=== PATIENT | female | born 1990 | race Caucasian/White ===

== ENCOUNTER 2019-12-20 23:51 | Emergency (ER) | payer SELFPAY ==
[~2019-12-20] VITALS: Ht 172 cm; Wt 79.6 kg
[~2019-12-20 23:51] MED LIST: ACHD5005 PO; CIPR500T4 PO; CLON0.5T PO; CLON1TAB69 PO; ESCI10TA55; HYDR25CA PO; IBP600T1 PO; NFR150C PO; OXYC-12 PO; PREN1TAB39 PO; PROP10TA8; SULF1TAB35 PO; ZLP10T PO
[2019-12-21 00:18] LABS: BILIRUBIN,URINE NEGATIVE (NEGATIVE); CLARITY,URINE CLOUDY; COLOR,URINE YELLOW; GLUCOSE, URINE (UA) TRACE (NEGATIVE); KETONES,URINE NEGATIVE (NEGATIVE); LEUKOCYTE ESTERASE ,URINE 1+ (NEGATIVE); NITRITE,URINE POSITIVE (NEGATIVE); PH,URINE 8.5 (5-9); PROTEIN,URINE 3+ (NEGATIVE)
[2019-12-21 00:33] LABS: BACTERIA,URINE MODERATE /HPF
[2019-12-21] MEDS ORDERED: NS IV 1000 ML 1,000 ML IV SCH (01:19)
[2019-12-21 01:26] LABS: BASOPHILS % (AUTO) 0 % (0-10); EOSINOPHILS # (AUTO) 0.3 10^3/uL (0.0-0.3); EOSINOPHILS % (AUTO) 2 % (0-10); HEMATOCRIT 37 % (35-52); HEMOGLOBIN 12.5 G/DL (11.5-16.0); LYMPHOCYTES # (AUTO) 1.5 X 10^3 (1.0-4.0); LYMPHOCYTES % (AUTO) 12 % (12-44); MEAN CORPUSCULAR HEMOGLOBIN 31 PG (25-34); MEAN CORPUSCULAR HGB CONC 34 G/DL (32-36); MEAN CORPUSCULAR VOLUME 92 FL (80-99); MONOCYTES # (AUTO) 0.9 X 10^3 (0.0-1.0); MONOCYTES % (AUTO) 7 % (0-12); NEUTROPHILS # (AUTO) 10.5 X 10^3 (1.8-7.8); NEUTROPHILS % (AUTO) 80 % (42-75); PLATELET COUNT 422 10^3/uL (130-400); RED CELL DISTRIBUTION WIDTH 13.3 % (10.0-14.5); WHITE BLOOD COUNT 13.2 10^3/uL (4.3-11.0)
--- NOTE | 2019-12-21 01:26 | ED Abdominal Pain ---
General Stated Complaint: ABD PAIN Source of Information: Patient, Other Exam Limitations: No Limitations History of Present Illness Date Seen by Provider: Dec 21, 2019 Time Seen by Provider: 01:05 Initial Comments Patient presents to ER by private conveyance with her significant other and chief complaint that about 9:00, 4 hours prior she Began to experience some right lower quadrant abdominal pain wrapping around into her right flank. She describes it as extremely painful like her hip is breaking. She has no history of kidney stones. She thinks it's her appendix is inflamed. She's not having any constipation or diarrhea. She is having some nausea with vomiting. She has not taken anything for pain or nausea at home. She is not having any fevers or chills. She has had 3 C-sections and a tubal ligation but no other intra- abdominal surgeries. Allergies and Home Medications Allergies Coded Allergies: latex (Verified Allergy, Unknown, 11/18/14) Home Medications Clonazepam 0.5 Mg Tablet, 0.5 MG PO BID Prescribed by: HUGO CUELLO on 09/05/15 2303 Hydrocodone Bit/Acetaminophen 1 Each Tablet, 1 EACH PO Q4H PRN for PAIN Prescribed by: NOBLE FOSTER on 07/12/16 1454 Patient Home Medication List Home Medication List Reviewed: Yes Review of Systems Review of Systems Constitutional: No chills, No fever EENTM: No Blurred Vision, No Double Vision Respiratory: Denies Cough, Denies Shortness of Air Cardiovascular: Denies Chest Pain, Denies Lightheadedness Gastrointestinal: See HPI, Abdominal Pain; Denies Constipated, Denies Diarrhea; Nausea, Vomiting Genitourinary: Denies Burning, Denies Discharge, Denies Drainage Musculoskeletal: No back pain, No joint pain All Other Systems Reviewed Negative Unless Noted: Yes Past Smdonmi-Lbuykg-Cmadgt Hx Patient Social History Alcohol Use: Denies Use Recreational Drug Use: No Smoking Status: Never a Smoker Recent Foreign Travel: No Contact w/Someone Who Travel: No Recent Hopitalizations: Yes (CHILDBIRTH) Immunizations Up To Date Tetanus Booster (TDap): Unknown Date of Influenza Vaccine: Dec 15, 2011 Past Medical History Section, Tubal Ligation Hypertension Reproductive Disorders: No [employer]IOR [employer] History: Tubal Ligation Anxiety Family Medical History No Pertinent Family Hx Physical Exam Vital Signs Capillary Refill : Height/Weight/BMI Height: 5'1" Weight: 126lbs. oz. [id number]; BMI Method:Stated General Appearance: WD/WN, mild distress HEENT: PERRL/EOMI, pharynx normal Neck: full range of motion, supple, normal inspection Respiratory: lungs clear, normal breath sounds, no respiratory distress, no accessory muscle use Cardiovascular: normal peripheral pulses, regular rate, rhythm, tachycardia (105) Peripheral Pulses: 2+ Radial Pulses (R), 2+ Radial Pulses (L) Gastrointestinal: normal bowel sounds, soft; No rebound; tenderness (right lower quadrant and right flank), other (negative for Rovsing sign, psoas sign) Extremities: normal range of motion, non-tender, normal capillary refill Back: no vertebral tenderness, CVA tenderness (L) Neurologic/Psychiatric: alert, normal mood/affect, oriented x 3 Skin: normal color, warm/dry Progress/Results/Core Measures Results/Orders Lab Results Laboratory Tests Test 12/21/19 00:10 12/21/19 00:19 Range/Units Urine Color YELLOW Urine Clarity CLOUDY Urine pH 8.5 5-9 Urine Specific [place] 1.015 L 1.016-1.022 Urine Protein 3+ H NEGATIVE Urine Glucose (UA) TRACE H NEGATIVE Urine Ketones NEGATIVE NEGATIVE Urine Nitrite POSITIVE H NEGATIVE Urine Bilirubin NEGATIVE NEGATIVE Urine Urobilinogen 1.0 < = 1.0 MG/DL Urine Leukocyte Esterase 1+ H NEGATIVE Urine RBC (Auto) 2+ H NEGATIVE Urine RBC 5-10 H /HPF Urine WBC 10-25 H /HPF Urine Crystals NONE /LPF Urine Bacteria MODERATE H /HPF Urine Casts NONE /LPF Urine Mucus NEGATIVE /LPF Urine Culture Indicated YES White Blood Count 13.2 H 4.3-11.0 10^3/uL Red Blood Count 4.02 L 4.35-5.85 10^6/uL Hemoglobin 12.5 11.5-16.0 G/DL Hematocrit 37 35-52 % Mean Corpuscular Volume 92 80-99 FL Mean Corpuscular Hemoglobin 31 25-34 PG Mean Corpuscular Hemoglobin Concent 34 32-36 G/DL Red Cell Distribution Width 13.3 10.0-14.5 % Platelet Count 422 H 130-400 10^3/uL Mean Platelet Volume 10.0 7.4-10.4 FL Neutrophils (%) (Auto) 80 H 42-75 % Lymphocytes (%) (Auto) 12 12-44 % Monocytes (%) (Auto) 7 0-12 % Eosinophils (%) (Auto) 2 0-10 % Basophils (%) (Auto) 0 0-10 % Neutrophils # (Auto) 10.5 H 1.8-7.8 X 10^3 Lymphocytes # (Auto) 1.5 1.0-4.0 X 10^3 Monocytes # (Auto) 0.9 0.0-1.0 X 10^3 Eosinophils # (Auto) 0.3 0.0-0.3 10^3/uL Basophils # (Auto) 0.0 0.0-0.1 10^3/uL Sodium Level 138 135-145 MMOL/L Potassium Level 3.9 3.6-5.0 MMOL/L Chloride Level 102 98-107 MMOL/L Carbon Dioxide Level 24 21-32 MMOL/L Anion Gap 12 5-14 MMOL/L Blood Urea Nitrogen 10 7-18 MG/DL Creatinine 0.86 0.60-1.30 MG/DL Estimat Glomerular Filtration Rate > 60 BUN/Creatinine Ratio 12 Glucose Level 114 H 70-105 MG/DL Calcium Level 9.8 8.5-10.1 MG/DL Corrected Calcium 9.4 8.5-10.1 MG/DL Total Bilirubin 0.2 0.1-1.0 MG/DL Aspartate Amino Transf (AST/SGOT) 19 5-34 U/L Alanine Aminotransferase (ALT/SGPT) 24 0-55 U/L Alkaline Phosphatase 72 40-136 U/L Total Protein 7.5 6.4-8.2 GM/DL Albumin 4.5 3.2-4.5 GM/DL My Orders Orders - NOAH BENTLEY Ua Culture If Indicated (12/20/19 23:53) Urine Bedside (12/20/19 23:53) Urine Culture (12/21/19 00:10) Ct Abd/Pelvis Wo(Kidney Stone) (12/21/19 01:19) Cbc With Automated Diff (12/21/19 01:19) Comprehensive Metabolic Panel (12/21/19 01:19) Ketorolac Injection (Toradol Injection) (12/21/19 01:30) Ondansetron Injection (Zofran Injectio (12/21/19 01:30) Ed Iv/Invasive Line Start (12/21/19 01:19) Ns Iv 1000 Ml (Sodium Chloride 0.9%) (12/21/19 01:19) Medications Given in ED Current Medications Medications Dose Ordered Sig/Deejay Route Start Time Stop Time Status Last Admin Dose Admin Ketorolac Tromethamine 30 mg ONCE ONCE IVP 12/21/19 01:30 12/21/19 01:31 DC 12/21/19 01:46 30 MG Ondansetron HCl 4 mg ONCE ONCE IVP 12/21/19 01:30 12/21/19 01:31 DC 12/21/19 01:46 4 MG Progress Progress Note #1: Time: 01:25 Progress Note Urine has blood and evidence of infection with positive for nitrites and white blood cells. Given her flank pain will get a CT of the abdomen and pelvis without IV contrast. She's never had a kidney stone before so will include some blood work looking for kidney dysfunction or evidence of large or inflammation to correlate. Appendicitis much less likely but possible. Toradol for pain. Zofran for nausea. A liter fluids. Progress Note #2: Time: 02:53 Progress Note Patient's heart rates in the 80s, blood pressure is acceptable and her pain is much improved after Toradol. We'll give her some Rocephin. She has received IV fluids. We will offer her outpatient management for pyelonephritis. Diagnostic Imaging Diagonstic Imaging: CT (without IV contrast, kidney stone study) Plain Films/CT/US/NM/MRI: abdomen, pelvis Comments Bilateral small nonobstructing intrarenal calculi. There is at least mild dilatation of the right upper renal collecting system with periureteral and mild perinephric stranding. No identifiable ureteral calculus. Mild bladder wall thickening with reticulation. Findings are suspicious for cystitis and right pyelonephritis and ureteritis. There is a large amount of retained stool throughout the colon most pronounced in the right and transverse colon. No evidence of appendicitis. Reviewed: Reviewed [place] Study, Reviewed by Me Departure Impression Primary Impression: Pyelonephritis Disposition: HOME, SELF-CARE Condition: Stable Departure-Patient Inst. Decision time for Depature: 02:54 Referrals: RONY SANCHEZ DO (PCP) Primary Care Physician FOSTER CALDERON APRN (Family) Primary Care Physician Patient Instructions: Kidney Infection (DC) Add. Discharge Instructions: It's important to drink a lot of fluids. Caffeine is okay. Start taking the antibiotics, cefdinir one capsule twice a day with food for 10 days. Tylenol 1000 mg every 8 hours as needed for pain. Ibuprofen 800 mg every 8 hours as needed for pain. Ondansetron one tablet under the tongue every 6 hours as needed for nausea or vomiting. Hydrocodone one tablet every 6 hours as needed for breakthrough pain. MiraLAX 1 capful in 6-8 ounces of fluids once or twice a day until your bowels are moving freely. Follow-up sooner if you begin to experience fevers especially lower 102.5, intractable nausea or pain. Scripts Cefdinir (Cefdinir) 300 Mg Capsule 300 MG PO BID for 10 Days, #20 CAP 0 Refills Prov: NOAH BENTLEY 12/21/19 Ondansetron (Ondansetron Odt) 4 Mg Tab.rapdis 4 MG PO Q6H PRN for NAUSEA/VOMITING, #8 TAB 0 Refills Prov: NOAH BENTLEY 12/21/19 Hydrocodone Bit/Acetaminophen (Hydrocodone/Acetaminophen 5/325mg Tablet) 1 Tab Tab 1 EACH PO Q4-6HR PRN for PAIN-MODERATE MDD 10 for 3 Days, #8 TAB 0 Refills Prov: NOAH BENTLEY 12/21/19 NOAH BENTLEY Dec 21, 2019 01:26
[2019-12-21] MEDS ORDERED: ONDANSETRON 4 MG/2 ML (SDV) Z0FRAN IVP ONE (01:30)
[2019-12-21] MEDS ORDERED: KETOROLAC 30 MG/ML VIAL IVP ONE (01:30)
[2019-12-21 01:39] LABS: ALANINE AMINOTRANSFERASE 24 U/L (0-55); ALBUMIN 4.5 GM/DL (3.2-4.5); ALKALINE PHOSPHATASE 72 U/L (40-136); BILIRUBIN,TOTAL 0.2 MG/DL (0.1-1.0); BUN/CREATININE RATIO 12; CALCIUM 9.8 MG/DL (8.5-10.1); CARBON DIOXIDE 24 MMOL/L (21-32); CHLORIDE 102 MMOL/L (98-107); CREATININE SERUM 0.86 MG/DL (0.60-1.30); GFR ESTIMATED > 60; GLUCOSE 114 MG/DL (70-105); POTASSIUM 3.9 MMOL/L (3.6-5.0); SODIUM 138 MMOL/L (135-145); TOTAL PROTEIN 7.5 GM/DL (6.4-8.2)
[2019-12-21] MEDS ORDERED: ACHD5005 PO (03:03)
[2019-12-21] MEDS ORDERED: CEFD300C3 PO (03:03)
[2019-12-21] MEDS ORDERED: ONDA4TAB11 PO (03:03)
[2019-12-21] MEDS ORDERED: RX-ONDANSETRON 4 MG ODT (ZOFRAN) PPK #4 PO STA (03:05)
[2019-12-21] MEDS ORDERED: cefTRIAXone FOR IV USE 1,000 MG in WATER (STERILE) FOR INJECTION 10 ML IV ONE (03:15)
[2019-12-21] MEDS ORDERED: RX-HYDROCODONE/APAP 5/325 MG #4 TAB PK PO PRN (03:15)
[2019-12-21 03:54] VITALS: BP 107/71
--- NOTE | 2019-12-21 06:36 | Diagnostic Imaging Report ---
PROCEDURE: CT urinary tract, rule out kidney stone. TECHNIQUE: Multiple contiguous axial images were obtained through the abdomen and pelvis without the use of intravenous contrast. Auto Exposure Controls were utilized during the CT exam to meet ALARA standards for radiation dose reduction. INDICATION: Right lower quadrant abdominal pain. COMPARISON: None. FINDINGS: There are several punctate nonobstructing calyceal tip renal stones in both kidneys. Moderate right ureteral pyelocaliectasis. No obstructing renal stones are identified. Left ureter is negative. The bladder is grossly unremarkable on this noncontrast exam. Lung bases are clear. The liver, gallbladder, pancreas, spleen, adrenals and appendix are negative. There is a large amount of stool throughout the colon and rectum. No free intraperitoneal air or fluid. No lymphadenopathy. No evidence of bowel obstruction. Osseous structures are intact. IMPRESSION: 1. Nonobstructing calyceal tip renal stones in both kidneys. There is also moderate right hydronephrosis with no obstructing lesion identified. This may be due to recently passed renal stone. An infectious process not excluded. 2. Large amount of stool throughout the colon and rectum compatible with constipation. Dictated by: Dictated on workstation # [id number]
== END 2019-12-21 04:25 | disposition home or self-care (01) ==
LOC: EDUNIT# 23:51 → ER 23:54
DX: N12 Tubulo-interstitial nephritis, not specified as acute or chronic (principal); Z91.040 Latex allergy status
CPT/HCPCS: 36415; 74176; 80053; 81000; 84703; 85025; 87077; 87088; 96361; 96374; 96375

== ENCOUNTER 2020-05-30 13:47 | Emergency (ER) | payer SELFPAY ==
[~2020-05-30] VITALS: Ht 162.5 cm; Wt 61.8 kg
[~2020-05-30 13:47] MED LIST changes: +CEFD300C3 PO; +ONDA4TAB11 PO
[2020-05-30] MEDS ORDERED: LORazepam INJ 2 MG/ML (ATIVAN) VIAL IVP PRN ×2 (14:00→15:30)
[2020-05-30 14:08] LABS: BASOPHILS # (AUTO) 0.1 10^3/uL (0.0-0.1); BASOPHILS % (AUTO) 1 % (0-10); EOSINOPHILS # (AUTO) 0.2 10^3/uL (0.0-0.3); EOSINOPHILS % (AUTO) 3 % (0-10); HEMATOCRIT 43 % (35-52); HEMOGLOBIN 15.2 G/DL (11.5-16.0); LYMPHOCYTES # (AUTO) 2.2 X 10^3 (1.0-4.0); LYMPHOCYTES % (AUTO) 25 % (12-44); MEAN CORPUSCULAR HEMOGLOBIN 33 PG (25-34); MEAN CORPUSCULAR HGB CONC 35 G/DL (32-36); MEAN CORPUSCULAR VOLUME 92 FL (80-99); MEAN PLATELET VOLUME 9.3 FL (7.4-10.4); MONOCYTES # (AUTO) 0.8 X 10^3 (0.0-1.0); MONOCYTES % (AUTO) 9 % (0-12); NEUTROPHILS # (AUTO) 5.3 X 10^3 (1.8-7.8); NEUTROPHILS % (AUTO) 62 % (42-75); PLATELET COUNT 358 10^3/uL (130-400); RED CELL DISTRIBUTION WIDTH 13.8 % (10.0-14.5); WHITE BLOOD COUNT 8.6 10^3/uL (4.3-11.0)
[2020-05-30 14:11] LABS: BILIRUBIN,URINE NEGATIVE (NEGATIVE); CLARITY,URINE CLEAR; COLOR,URINE YELLOW; GLUCOSE, URINE (UA) NEGATIVE (NEGATIVE); KETONES,URINE NEGATIVE (NEGATIVE); LEUKOCYTE ESTERASE ,URINE TRACE (NEGATIVE); NITRITE,URINE NEGATIVE (NEGATIVE); PROTEIN,URINE NEGATIVE (NEGATIVE)
--- NOTE | 2020-05-30 14:16 | ED General ---
General Stated Complaint: VOMITING;SHAKING;DIZZINESS Source of Information: Patient Exam Limitations: No Limitations History of Present Illness Date Seen by Provider: May 30, 2020 Time Seen by Provider: 14:13 Initial Comments And typically gets some fatigue with that. As such she bought some bzji-rxb-lreiptw caffeine energy pills. One bottle says "go to sleep", 1 bottle says "stay awake". She woke up at about midnight and took what she thought was the "go to sleep" bottle but in hindsight was likely the "stay awake" bottle. She took 3 of these tablets. Since then she's had difficulty concentrating, anxiety, states she feels like she is having a panic attack, nausea and vomiting. Timing/Duration: 1-2 Days Associated Systoms: Nausea/Vomiting Allergies and Home Medications Allergies Coded Allergies: latex (Verified Allergy, Unknown, 11/18/14) Home Medications Cefdinir 300 Mg Capsule, 300 MG PO BID Prescribed by: NOAH BENTLEY on 12/21/19302 Clonazepam 0.5 Mg Tablet, 0.5 MG PO BID Prescribed by: HUGO CUELLO on 09/05/15 2303 Hydrocodone Bit/Acetaminophen 1 Each Tablet, 1 EACH PO Q4H PRN for PAIN Prescribed by: NOBLE FOSTER on 07/12/16 1454 Hydrocodone Bit/Acetaminophen 1 Tab Tab, 1 EACH PO Q4-6HR PRN for PAIN-MODERATE Prescribed by: NOAH BENTLEY on 12/21/19302 Ondansetron 4 Mg Tab.rapdis, 4 MG PO Q6H PRN for NAUSEA/VOMITING Prescribed by: NOAH BENTLEY on 12/21/19302 Patient Home Medication List Home Medication List Reviewed: Yes Review of Systems Review of Systems Constitutional: see HPI EENTM: see HPI Respiratory: no symptoms reported Cardiovascular: no symptoms reported Genitourinary: no symptoms reported Musculoskeletal: no symptoms reported Skin: no symptoms reported Psychiatric/Neurological: No Symptoms Reported Hematologic/Lymphatic: No Symptoms Reported Past Odldcdh-Ajjqfn-Sbygej Hx Patient Social History Drug of Choice: MARIJUANNA Type Used: Cigarettes Recent Hopitalizations: Yes (CHILDBIRTH) Immunizations Up To Date Tetanus Booster (TDap): Unknown Date of Influenza Vaccine: Dec 15, 2011 Past Medical History Surgeries: Yes ( X3/BARTHOLIN CYST REMOVED) Section, Tubal Ligation Respiratory: No Cardiac: Yes Hypertension Neurological: No 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 oz. 57.474633ho; 26.00 BMI Method:Stated General Appearance: No Apparent Distress, WD/WN, Anxious Eyes: Bilateral Eye Normal Inspection, Bilateral Eye PERRL, Bilateral Eye EOMI Respiratory: No Accessory Muscle Use, No Respiratory Distress Cardiovascular: Normal Peripheral Pulses, Tachycardia (118) Gastrointestinal: Normal Bowel Sounds, Non Tender, Soft Extremity: Normal Capillary Refill, Normal Inspection Neurologic/Psychiatric: Alert, Oriented x3 Skin: Normal Color, Warm/Dry Progress/Results/Core Measures Suspected Sepsis SIRS Temperature: Pulse: Respiratory Rate: Laboratory Tests 05/30/20 14:00: White Blood Count 8.6 Blood Pressure / Mean: Laboratory Tests 05/30/20 14:00: Creatinine 1.09, Platelet Count 358, Total Bilirubin 0.3 Results/Orders Lab Results Laboratory Tests Test 05/30/20 14:00 Range/Units White Blood Count 8.6 4.3-11.0 10^3/uL Red Blood Count 4.68 4.35-5.85 10^6/uL Hemoglobin 15.2 11.5-16.0 G/DL Hematocrit 43 35-52 % Mean Corpuscular Volume 92 80-99 FL Mean Corpuscular Hemoglobin 33 25-34 PG Mean Corpuscular Hemoglobin Concent 35 32-36 G/DL Red Cell Distribution Width 13.8 10.0-14.5 % Platelet Count 358 130-400 10^3/uL Mean Platelet Volume 9.3 7.4-10.4 FL Neutrophils (%) (Auto) 62 42-75 % Lymphocytes (%) (Auto) 25 12-44 % Monocytes (%) (Auto) 9 0-12 % Eosinophils (%) (Auto) 3 0-10 % Basophils (%) (Auto) 1 0-10 % Neutrophils # (Auto) 5.3 1.8-7.8 X 10^3 Lymphocytes # (Auto) 2.2 1.0-4.0 X 10^3 Monocytes # (Auto) 0.8 0.0-1.0 X 10^3 Eosinophils # (Auto) 0.2 0.0-0.3 10^3/uL Basophils # (Auto) 0.1 0.0-0.1 10^3/uL Urine Color YELLOW Urine Clarity CLEAR Urine pH 7.0 5-9 Urine Specific [place] <=1.005 1.016-1.022 Urine Protein NEGATIVE NEGATIVE Urine Glucose (UA) NEGATIVE NEGATIVE Urine Ketones NEGATIVE NEGATIVE Urine Nitrite NEGATIVE NEGATIVE Urine Bilirubin NEGATIVE NEGATIVE Urine Urobilinogen 0.2 < = 1.0 MG/DL Urine Leukocyte Esterase TRACE H NEGATIVE Urine RBC (Auto) TRACE-L NEGATIVE Urine RBC 0-2 /HPF Urine WBC 2-5 /HPF Urine Squamous Epithelial Cells 10-25 H /HPF Urine Crystals NONE /LPF Urine Bacteria TRACE /HPF Urine Casts NONE /LPF Urine Mucus NEGATIVE /LPF Urine Culture Indicated NO Sodium Level 136 135-145 MMOL/L Potassium Level 4.1 3.6-5.0 MMOL/L Chloride Level 102 98-107 MMOL/L Carbon Dioxide Level 22 21-32 MMOL/L Anion Gap 12 5-14 MMOL/L Blood Urea Nitrogen 9 7-18 MG/DL Creatinine 1.09 0.60-1.30 MG/DL Estimat Glomerular Filtration Rate 58 BUN/Creatinine Ratio 8 Glucose Level 91 70-105 MG/DL Calcium Level 10.6 H 8.5-10.1 MG/DL Corrected Calcium 8.5-10.1 MG/DL Total Bilirubin 0.3 0.1-1.0 MG/DL Aspartate Amino Transf (AST/SGOT) 22 5-34 U/L Alanine Aminotransferase (ALT/SGPT) 18 0-55 U/L Alkaline Phosphatase 96 40-136 U/L Total Protein 8.6 H 6.4-8.2 GM/DL Albumin 5.2 H 3.2-4.5 GM/DL Serum Test, Qualitative NEGATIVE NEGATIVE My Orders Orders - LISA HENRY APRN Cbc With Automated Diff (05/30/20 13:58) Comprehensive Metabolic Panel (05/30/20 13:58) Hcg,Qualitative Serum (05/30/20 13:58) Ua Culture If Indicated (05/30/20 13:58) Ed Iv/Invasive Line Start (05/30/20 13:58) Lorazepam Injection (Ativan Injection) (05/30/20 14:00) Lorazepam Injection (Ativan Injection) (05/30/20 15:30) Medications Given in ED Current Medications Medications Dose Ordered Sig/Deejay Route Start Time Stop Time Status Last Admin Dose Admin Lorazepam 1 mg ONCE PRN IVP 05/30/20 14:00 05/30/20 14:08 1 MG Vital Signs/I&O 05/30/20 13:55 Temp 36.3 Pulse 122 Resp 22 B/P (MAP) 163/112 (129) Pulse Ox 100 O2 Delivery Room Air Capillary Refill : Departure Communication (Admissions) 1527-still anxious after 1 mg of lorazepam. Heart rate 105 sinus. Blood pressure 120/80. Oxygen 100% room air. Additional 1 mg ordered. She states she doesn't feel any better. Impression Primary Impression: Anxiety Additional Impression: Caffeine toxicity Disposition: 01 HOME, SELF-CARE Condition: Stable Departure-Patient Inst. Decision time for Depature: 14:31 Referrals: RONY SANCHEZ DO (PCP) Primary Care Physician FOSTER CALDERON APRN (Family) Primary Care Physician Patient Instructions: Anxiety, Adult (DC) LISA HENRY APRN May 30, 2020 14:15
[2020-05-30 14:19] LABS: ALBUMIN 5.2 GM/DL (3.2-4.5)
[2020-05-30 14:20] LABS: BACTERIA,URINE TRACE /HPF; CHLORIDE 102 MMOL/L (98-107); POTASSIUM 4.1 MMOL/L (3.6-5.0); RBC,URINE 0-2 /HPF; SODIUM 136 MMOL/L (135-145)
[2020-05-30 14:21] LABS: CALCIUM 10.6 MG/DL (8.5-10.1)
[2020-05-30 14:22] LABS: GLUCOSE 91 MG/DL (70-105); TOTAL PROTEIN 8.6 GM/DL (6.4-8.2)
[2020-05-30 14:23] LABS: CARBON DIOXIDE 22 MMOL/L (21-32)
[2020-05-30 14:24] LABS: BILIRUBIN,TOTAL 0.3 MG/DL (0.1-1.0)
[2020-05-30 14:25] LABS: ALKALINE PHOSPHATASE 96 U/L (40-136)
[2020-05-30 14:26] LABS: CREATININE SERUM 1.09 MG/DL (0.60-1.30); GFR ESTIMATED 58
[2020-05-30 14:27] LABS: BUN/CREATININE RATIO 8
[2020-05-30 14:29] LABS: ALANINE AMINOTRANSFERASE 18 U/L (0-55)
[2020-05-30 15:52] LABS: AMPHETAMINE SCREEN, URINE NEGATIVE (NEGATIVE); BARBITURATE SCREEN URINE NEGATIVE (NEGATIVE); BENZODIAZEPINES SCREEN URINE NEGATIVE (NEGATIVE); CANNABINOID SCREEN, URINE POSITIVE (NEGATIVE); COCAINE SCREEN URINE NEGATIVE (NEGATIVE); METHADONE STAT NEGATIVE (NEGATIVE); METHAMPHETAMINE SCREEN URINE S NEGATIVE (NEGATIVE); OPIATE SCREEN URINE NEGATIVE (NEGATIVE); OXYCODONE STAT NEGATIVE (NEGATIVE); PROPOXYPHENE STAT NEGATIVE (NEGATIVE); TRICYCLIC ANTIDEPRESSANTS SCRE NEGATIVE (NEGATIVE)
[2020-05-30 16:25] VITALS: BP 116/76
[2020-05-31] MEDS ORDERED: OLAN5TAB3 PO (14:13)
== END 2020-05-30 16:25 | disposition home or self-care (01) ==
LOC: EDUNIT# 13:47 → ER 13:50
DX: F41.9 Anxiety disorder, unspecified (principal); T43.611A Poisoning by caffeine, accidental (unintentional), initial encounter; Z91.040 Latex allergy status
CPT/HCPCS: 36415; 80053; 80306; 81000; 84703; 85025

== ENCOUNTER 2020-05-31 12:38 | Emergency (ER) | payer SELFPAY ==
[~2020-05-31] VITALS: Ht 160 cm; Wt 62.3 kg
[2020-05-31] MEDS ORDERED: LORazepam INJ 2 MG/ML (ATIVAN) VIAL IVP ONE (13:00)
--- NOTE | 2020-05-31 13:09 | ED Psychosocial ---
General Chief Complaint: Psych/Social Disorder Stated Complaint: DIZZY / VOMITING / CHEST TIGHTNESS Source: patient Exam Limitations: no limitations History of Present Illness Date Seen by Provider: May 31, 2020 Time Seen by Provider: 12:40 Initial Comments Patient presents ER by private conveyance from home with chief complaint that 2 days ago she took 3 tablets of caffeine pills she says she gets sleepy before her period starts. Since then she's had racing heart, chest tightness and shortness of air. She's had no fevers cough or sick contacts. She has a history of anxiety with panic attacks. She used to use clonazepam and propranolol for her blood pressure and racing heart rate but was taken off of it and put on lisinopril because of propranolol was not sufficient. She follows with [facility]. She denies a history of personal disorders. She is having chest tightness all around. She says she came to the ER yesterday and was given 2 mg of Ativan and then went home. She was able to sleep until about 2 in the morning when she woke up again with palpitations and heart racing and unable to get rest. No significant family medical history or personal history of hypertension, hyperlipidemia. She does smoke cigarettes. She denies any recreational drug use with the exception of marijuana which she smokes regularly daily. She did have some this morning hoping it would help with her heart palpitations and anxiety but it did not. She tried whiskey last night without success. Patient states that her eyes are dilated. She is on Prozac, Zoloft and lisinopril. Allergies and Home Medications Allergies Coded Allergies: latex (Verified Allergy, Unknown, 11/18/14) Home Medications Cefdinir 300 Mg Capsule, 300 MG PO BID Prescribed by: NOAH BENTLEY on 12/21/19 030 Clonazepam 0.5 Mg Tablet, 0.5 MG PO BID Prescribed by: HUGO CUELLO on 09/05/15 2303 Hydrocodone Bit/Acetaminophen 1 Each Tablet, 1 EACH PO Q4H PRN for PAIN Prescribed by: NOBLE FOSTER on 07/12/16 1454 Hydrocodone Bit/Acetaminophen 1 Tab Tab, 1 EACH PO Q4-6HR PRN for PAIN-MODERATE Prescribed by: NOAH BENTLEY on 12/21/19 030 Olanzapine 5 Mg Tablet, 5 MG PO HS PRN for INSOMNIA Prescribed by: NOAH BENTLEY on 05/31/20 1413 Ondansetron 4 Mg Tab.rapdis, 4 MG PO Q6H PRN for NAUSEA/VOMITING Prescribed by: NOAH BENTLEY on 12/21/19 0303 Patient Home Medication List Home Medication List Reviewed: Yes Review of Systems Constitutional: No chills, No diaphoresis EENTM: No ear discharge, No ear pain Respiratory: No cough, No short of breath Cardiovascular: see HPI (fast heart rate); No chest pain, No edema; palpitations Gastrointestinal: No abdominal pain, No nausea, No vomiting Genitourinary: No discharge, No dysuria Musculoskeletal: No back pain, No joint pain Psychiatric/Neurological: Anxiety, Depressed All Other Systems Reviewed Negative Unless Noted: Yes Past Eubgrlj-Wkheuv-Ssskfo Hx Patient Social History Alcohol Use: Occasionally Uses Alcohol Beverage of Choice: Whiskey Recreational Drug Use: Yes Drug of Choice: MARIJUANNA Smoking Status: Current Everyday Smoker Type Used: Cigarettes 2nd Hand Smoke Exposure: Yes Recent Foreign Travel: No Contact w/Someone Who Travel: No Recent Hopitalizations: Yes (CHILDBIRTH) Immunizations Up To Date Tetanus Booster (TDap): Unknown Date of Influenza Vaccine: Dec 15, 2011 Seasonal Allergies Seasonal Allergies: No Past Medical History Surgeries: Yes ( X3/BARTHOLIN CYST REMOVED) Section, Tubal Ligation Respiratory: No Cardiac: Yes Hypertension Neurological: No Reproductive Disorders: No 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 oz. 57.593465co; 23.00 BMI Method:Stated General Appearance: WD/WN, moderate distress HEENT: PERRL/EOMI (. 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, no motor/sensory deficits, alert, oriented x 3, other (anxious affect without tremors) Appearance/Memory: appropriate appearance, appropriate insight, neat Behavior/Eye Contact: good eye contact, normal speech Progress/Results/Core Measures Results/Orders Lab Results Laboratory Tests Test 05/31/20 12:55 05/31/20 13:15 Range/Units White Blood Count 7.4 4.3-11.0 10^3/uL Red Blood Count 4.68 4.35-5.85 10^6/uL Hemoglobin 15.0 11.5-16.0 G/DL Hematocrit 43 35-52 % Mean Corpuscular Volume 92 80-99 FL Mean Corpuscular Hemoglobin 32 25-34 PG Mean Corpuscular Hemoglobin Concent 35 32-36 G/DL Red Cell Distribution Width 14.0 10.0-14.5 % Platelet Count 377 130-400 10^3/uL Mean Platelet Volume 9.6 7.4-10.4 FL Neutrophils (%) (Auto) 54 42-75 % Lymphocytes (%) (Auto) 30 12-44 % Monocytes (%) (Auto) 14 H 0-12 % Eosinophils (%) (Auto) 2 0-10 % Basophils (%) (Auto) 1 0-10 % Neutrophils # (Auto) 4.0 1.8-7.8 X 10^3 Lymphocytes # (Auto) 2.2 1.0-4.0 X 10^3 Monocytes # (Auto) 1.0 0.0-1.0 X 10^3 Eosinophils # (Auto) 0.2 0.0-0.3 10^3/uL Basophils # (Auto) 0.0 0.0-0.1 10^3/uL D-Dimer <= 0.27 0.00-0.49 UG/ML Sodium Level 137 135-145 MMOL/L Potassium Level 4.3 3.6-5.0 MMOL/L Chloride Level 102 98-107 MMOL/L Carbon Dioxide Level 20 L 21-32 MMOL/L Anion Gap 15 H 5-14 MMOL/L Blood Urea Nitrogen 12 7-18 MG/DL Creatinine 1.09 0.60-1.30 MG/DL Estimat Glomerular Filtration Rate 58 BUN/Creatinine Ratio 11 Glucose Level 95 70-105 MG/DL Calcium Level 10.0 8.5-10.1 MG/DL Corrected Calcium 8.5-10.1 MG/DL Total Bilirubin 0.3 0.1-1.0 MG/DL Aspartate Amino Transf (AST/SGOT) 19 5-34 U/L Alanine Aminotransferase (ALT/SGPT) 16 0-55 U/L Alkaline Phosphatase 92 40-136 U/L Troponin I < 0.028 <0.028 NG/ML C-Reactive Protein High Sensitivity 0.69 H 0.00-0.50 MG/DL Total Protein 8.9 H 6.4-8.2 GM/DL Albumin 5.2 H 3.2-4.5 GM/DL Urine Color YELLOW Urine Clarity CLEAR Urine pH 7.0 5-9 Urine Specific [place] 1.020 1.016-1.022 Urine Protein TRACE H NEGATIVE Urine Glucose (UA) NEGATIVE NEGATIVE Urine Ketones NEGATIVE NEGATIVE Urine Nitrite NEGATIVE NEGATIVE Urine Bilirubin NEGATIVE NEGATIVE Urine Urobilinogen 0.2 < = 1.0 MG/DL Urine Leukocyte Esterase NEGATIVE NEGATIVE Urine RBC (Auto) TRACE-I NEGATIVE Urine RBC RARE /HPF Urine WBC 2-5 /HPF Urine Squamous Epithelial Cells 10-25 H /HPF Urine Crystals NONE /LPF Urine Bacteria TRACE /HPF Urine Casts NONE /LPF Urine Mucus NEGATIVE /LPF Urine Culture Indicated NO Urine Opiates Screen NEGATIVE NEGATIVE Urine Oxycodone Screen NEGATIVE NEGATIVE Urine Methadone Screen NEGATIVE NEGATIVE Urine Propoxyphene Screen NEGATIVE NEGATIVE Urine Barbiturates Screen NEGATIVE NEGATIVE Ur Tricyclic Antidepressants Screen NEGATIVE NEGATIVE Urine Phencyclidine Screen NEGATIVE NEGATIVE Urine Amphetamines Screen NEGATIVE NEGATIVE Urine Methamphetamines Screen NEGATIVE NEGATIVE Urine Benzodiazepines Screen POSITIVE H NEGATIVE Urine Cocaine Screen NEGATIVE NEGATIVE Urine Cannabinoids Screen POSITIVE H NEGATIVE My Orders Orders - NOAH BENTLEY Lorazepam Injection (Ativan Injection) (05/31/20 13:00) Chest 1 View, Ap/Pa Only (05/31/20 12:57) Cbc With Automated Diff (05/31/20 12:57) Comprehensive Metabolic Panel (05/31/20 12:57) Fibrin Degradation Products (05/31/20 12:57) Ua Culture If Indicated (05/31/20 12:57) Drug Screen Stat (Urine) (05/31/20 12:57) Urine Bedside (05/31/20 12:57) Ekg Tracing (05/31/20 12:57) Continuous Ekg Monitoring (05/31/20 12:57) Troponin I (05/31/20 12:57) Hs C Reactive Protein (05/31/20 12:57) Ondansetron Injection (Zofran Injectio (05/31/20 13:30) Ondansetron Injection (Zofran Injectio (05/31/20 13:16) Olanzapine Orally Dissolve Tab (Zyprexa (05/31/20 14:15) Medications Given in ED Current Medications Medications Dose Ordered Sig/Deejay Route Start Time Stop Time Status Last Admin Dose Admin Lorazepam 2 mg ONCE ONCE IVP 05/31/20 13:00 05/31/20 13:01 DC 05/31/20 13:14 2 MG Olanzapine 5 mg ONCE ONCE PO 05/31/20 14:15 05/31/20 14:16 DC 05/31/20 14:17 5 MG Ondansetron HCl 4 mg ONCE ONCE IVP 05/31/20 13:30 05/31/20 13:31 DC 05/31/20 13:20 4 MG Vital Signs/I&O 05/31/20 12:50 Temp 36.9 Pulse 120 Resp 20 B/P (MAP) 149/106 (120) Progress Progress Note #1: Time: 13:10 Progress Note Most of her symptoms could be attributed to anxiety and panic attack however going on for the past couple days. She does not appear to be manic but very anxious. Plan to give her some Ativan IV fluids and check some labs and urinalysis as well as a chest x-ray and EKG. D-dimer. Heart rate of 1 teens however after the examiner leaves the room her heart rate dips down into the 90s. Progress Note #2: Time: 14:02 Progress Note Unremarkable labs. Benzos are from her ER visit yesterday. Cannabinoids are known. She could have adulterated cannabis with a drug that we cannot test for. She is no longer tachycardic. Vital signs are aseptic, normal. D-dimer does not objective also pulmonary embolism is thought to be highly unlikely. Suspect this is anxiety and recurrent any give her a dose of Zyprexa with one daily when necessary for 1 week and encourage her to follow up next week with primary care. Patient denies being suicidal or homicidal. She is having difficulty sleeping however. Initial ECG Impression Date: May 31, 2020 Initial ECG Impression Time: 12:58 Initial ECG Rate: 93 Initial ECG Rhythm: Normal Sinus Initial ECG Intervals: Normal Initial ECG Impression: Normal Initial ECG Comparisson: Unchanged Comment Normal sinus rhythm without clinically relevant ST elevation or depression. No significant dysrhythmia. Diagnostic Imaging Diagonstic Imaging: Xray Plain Films/CT/US/NM/MRI: chest (1v) Comments NAME: SHA [facility] REC#: [id number] PT STATUS: REG ER : 1990 PHYSICIAN: NOAH BENTLEY MD ADMIT DATE: 05/31/20/ER Signed Date of Exam:05/31/20 CHEST 1 VIEW, AP/PA ONLY CHEST 1 VIEW, AP/PA ONLY Indication: Tachycardia Comparison: None available. Findings: No focal airspace disease in the visualized lungs. Please note that the posterior lower lobes are poorly evaluated by portable radiography. No pleural effusion or pneumothorax. Normal cardiomediastinal silhouette. Impression: 1. No acute cardiopulmonary process by portable radiography. Dictated by: Dictated on workstation # [id number] Dict: 05/31/20 1339 Trans: 05/31/20 1339 [facility] [id number] Interpreted by: HYACINTH AMIN MD Electronically signed by: HYACINTH AMIN MD 05/31/20 1339 Reviewed: Reviewed by Me Departure Impression Primary Impression: Anxiety Additional Impressions: Insomnia Qualified Codes: G47.00 - Insomnia, unspecified Panic attack Disposition: HOME, SELF-CARE Condition: Stable Departure-Patient Inst. Decision time for Depature: 14:06 Referrals: RONY SANCHEZ DO (PCP) Primary Care Physician FOSTER CALDERON APRN (Family) Primary Care Physician Patient Instructions: Insomnia, Panic Disorder (DC), Tips for Getting Better Sleep Add. Discharge Instructions: I'm not sure if there was something in the caffeine or the cannabis that we cannot test for that is causing your symptoms or this is all related to your existing anxiety with panic disorder. We've been able to rule out anything dangerous happening today in the ER. Further studies may need to be done by your primary care doctor. We have given you a dose of Zyprexa which should help calm your mind and aid your ability to sleep. I will give you a prescription for some more Zyprexa. If you continue to have difficulty sleeping and may take one tablet daily. Tuesday you need to follow-up with your primary office if you're still having difficulty sleeping over the weekend. They can help further work up your problems and apply more definitive, appropriate treatment. Please review the handout on tips to help get to sleep. Please stop using cannabis or any other substances, especially alcohol which is known to cause rebound insomnia. Please return to the ER if you're having new or worsening symptoms. If you have lightheadedness especially after standing up then discontinue the Zyprexa and see your primary care doctor. All discharge instructions reviewed with patient and/or family. Voiced understanding. Scripts Olanzapine (Zyprexa) 5 Mg Tablet 5 MG PO HS PRN for INSOMNIA for 7 Days, #7 TAB 0 Refills Prov: NOAH BENTLEY 05/31/20 NOAH BENTLEY May 31, 2020 13:09
[2020-05-31] MEDS ORDERED: ONDANSETRON 4 MG/2 ML (SDV) Z0FRAN ONE (13:16)
[2020-05-31 13:24] LABS: BILIRUBIN,URINE NEGATIVE (NEGATIVE); CLARITY,URINE CLEAR; COLOR,URINE YELLOW; GLUCOSE, URINE (UA) NEGATIVE (NEGATIVE); KETONES,URINE NEGATIVE (NEGATIVE); LEUKOCYTE ESTERASE ,URINE NEGATIVE (NEGATIVE); NITRITE,URINE NEGATIVE (NEGATIVE); PROTEIN,URINE TRACE (NEGATIVE)
[2020-05-31 13:27] LABS: BASOPHILS % (AUTO) 1 % (0-10); EOSINOPHILS # (AUTO) 0.2 10^3/uL (0.0-0.3); EOSINOPHILS % (AUTO) 2 % (0-10); HEMATOCRIT 43 % (35-52); LYMPHOCYTES # (AUTO) 2.2 X 10^3 (1.0-4.0); LYMPHOCYTES % (AUTO) 30 % (12-44); MEAN CORPUSCULAR HEMOGLOBIN 32 PG (25-34); MEAN CORPUSCULAR HGB CONC 35 G/DL (32-36); MEAN CORPUSCULAR VOLUME 92 FL (80-99); MEAN PLATELET VOLUME 9.6 FL (7.4-10.4); MONOCYTES % (AUTO) 14 % (0-12); NEUTROPHILS % (AUTO) 54 % (42-75); PLATELET COUNT 377 10^3/uL (130-400); WHITE BLOOD COUNT 7.4 10^3/uL (4.3-11.0)
[2020-05-31 13:29] LABS: ALBUMIN 5.2 GM/DL (3.2-4.5); CHLORIDE 102 MMOL/L (98-107); POTASSIUM 4.3 MMOL/L (3.6-5.0); SODIUM 137 MMOL/L (135-145)
[2020-05-31] MEDS ORDERED: ONDANSETRON 4 MG/2 ML (SDV) Z0FRAN IVP ONE (13:30)
[2020-05-31 13:32] LABS: GLUCOSE 95 MG/DL (70-105); TOTAL PROTEIN 8.9 GM/DL (6.4-8.2)
[2020-05-31 13:33] LABS: BACTERIA,URINE TRACE /HPF; RBC,URINE RARE /HPF
[2020-05-31 13:33] LABS: BILIRUBIN,TOTAL 0.3 MG/DL (0.1-1.0); CARBON DIOXIDE 20 MMOL/L (21-32)
[2020-05-31 13:35] LABS: ALKALINE PHOSPHATASE 92 U/L (40-136); CREATININE SERUM 1.09 MG/DL (0.60-1.30); GFR ESTIMATED 58
[2020-05-31 13:36] LABS: BUN/CREATININE RATIO 11
[2020-05-31 13:38] LABS: ALANINE AMINOTRANSFERASE 16 U/L (0-55)
--- NOTE | 2020-05-31 13:40 | Diagnostic Imaging Report ---
CHEST 1 VIEW, AP/PA ONLY Indication: Tachycardia Comparison: None available. Findings: No focal airspace disease in the visualized lungs. Please note that the posterior lower lobes are poorly evaluated by portable radiography. No pleural effusion or pneumothorax. Normal cardiomediastinal silhouette. Impression: 1. No acute cardiopulmonary process by portable radiography. Dictated by: Dictated on workstation # [id number]
[2020-05-31 13:42] LABS: AMPHETAMINE SCREEN, URINE NEGATIVE (NEGATIVE); BARBITURATE SCREEN URINE NEGATIVE (NEGATIVE); BENZODIAZEPINES SCREEN URINE POSITIVE (NEGATIVE); CANNABINOID SCREEN, URINE POSITIVE (NEGATIVE); COCAINE SCREEN URINE NEGATIVE (NEGATIVE); METHADONE STAT NEGATIVE (NEGATIVE); METHAMPHETAMINE SCREEN URINE S NEGATIVE (NEGATIVE); OPIATE SCREEN URINE NEGATIVE (NEGATIVE); OXYCODONE STAT NEGATIVE (NEGATIVE); PROPOXYPHENE STAT NEGATIVE (NEGATIVE); TRICYCLIC ANTIDEPRESSANTS SCRE NEGATIVE (NEGATIVE)
[2020-05-31] MEDS ORDERED: OLAN5TAB3 PO (14:13)
[2020-05-31] MEDS ORDERED: OLANZapine 5 MG ODT (ZyPREXA ZYDIS) PO ONE (14:15)
[2020-05-31 14:47] VITALS: BP 126/84
== END 2020-05-31 14:49 | disposition home or self-care (01) ==
LOC: EDUNIT# 12:38 → ER 12:39
DX: F41.0 Panic disorder [episodic paroxysmal anxiety] (principal); G47.00 Insomnia, unspecified; I10 Essential (primary) hypertension; F17.210 Nicotine dependence, cigarettes, uncomplicated; Z91.040 Latex allergy status
CPT/HCPCS: 36415; 71045; 80053; 80306; 81000; 84484; 84703; 85025; 85379; 86141; 93005

== ENCOUNTER 2020-08-04 12:47 | Emergency (ER) | payer SELFPAY ==
[~2020-08-04] VITALS: Ht 162.5 cm; Wt 68.0 kg
[~2020-08-04 12:47] MED LIST changes: +OLAN5TAB3 PO
[2020-08-04 13:14] LABS: BASOPHILS # (AUTO) 0.1 10^3/uL (0.0-0.1); BASOPHILS % (AUTO) 1 % (0-10); EOSINOPHILS # (AUTO) 0.3 10^3/uL (0.0-0.3); EOSINOPHILS % (AUTO) 4 % (0-10); HEMATOCRIT 39 % (35-52); HEMOGLOBIN 13.5 G/DL (11.5-16.0); LYMPHOCYTES # (AUTO) 2.5 X 10^3 (1.0-4.0); LYMPHOCYTES % (AUTO) 31 % (12-44); MEAN CORPUSCULAR HEMOGLOBIN 32 PG (25-34); MEAN CORPUSCULAR HGB CONC 34 G/DL (32-36); MEAN CORPUSCULAR VOLUME 93 FL (80-99); MONOCYTES # (AUTO) 0.6 X 10^3 (0.0-1.0); MONOCYTES % (AUTO) 8 % (0-12); NEUTROPHILS # (AUTO) 4.7 X 10^3 (1.8-7.8); NEUTROPHILS % (AUTO) 58 % (42-75); PLATELET COUNT 414 10^3/uL (130-400); WHITE BLOOD COUNT 8.1 10^3/uL (4.3-11.0)
[2020-08-04] MEDS ORDERED: LORazepam INJ 2 MG/ML (ATIVAN) VIAL IVP PRN (13:15)
[2020-08-04 13:17] LABS: ALBUMIN 5.1 GM/DL (3.2-4.5); CHLORIDE 103 MMOL/L (98-107); POTASSIUM 4.1 MMOL/L (3.6-5.0); SODIUM 137 MMOL/L (135-145)
[2020-08-04 13:19] LABS: GLUCOSE 102 MG/DL (70-105); TOTAL PROTEIN 8.5 GM/DL (6.4-8.2)
--- NOTE | 2020-08-04 13:19 | ED Chest Pain ---
General Chief Complaint: Chest Pain Stated Complaint: CHEST PAIN Nursing Triage Note: Pt c/o chest pain described as pressure on the chest. Pt reports arms/legs have been turning purple. Pt reports extreme stress and insomnia. Pt is going through a divorce. Pt also reports history of anxiety and panic disorder. Pt reports this is worse than episodes in the past. Symptoms have persisted for several days. Nursing Sepsis Screen: No Definite Risk Source: patient Exam Limitations: no limitations History of Present Illness Date Seen by Provider: Aug 04, 2020 Time Seen by Provider: 13:17 Initial Comments To ER with reports of pressure in the chest. Arms and legs have been turning purple intermittently. She reports that she is under a lot of stress as she is going through a divorce and has a history of anxiety and panic disorder. She reports restless legs and insomnia for about 2 days. 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 NTG SL BOOM CAT OPERATOR: No Allergies and Home Medications Allergies Coded Allergies: latex (Verified Allergy, Unknown, 11/18/14) Home Medications Cefdinir 300 Mg Capsule, 300 MG PO BID Prescribed by: NOAH BENTLEY on 12/21/19 030 Clonazepam 0.5 Mg Tablet, 0.5 MG PO BID Prescribed by: HUGO CUELLO on 09/05/15 2303 Hydrocodone Bit/Acetaminophen 1 Each Tablet, 1 EACH PO Q4H PRN for PAIN Prescribed by: NOBLE FOSTER on 07/12/16 1454 Hydrocodone Bit/Acetaminophen 1 Tab Tab, 1 EACH PO Q4-6HR PRN for PAIN-MODERATE Prescribed by: NOAH BENTLEY on 12/21/19 0303 Olanzapine 5 Mg Tablet, 5 MG PO HS PRN for INSOMNIA Prescribed by: NOAH BENTLEY on 05/31/20 1413 Ondansetron 4 Mg Tab.rapdis, 4 MG PO Q6H PRN for NAUSEA/VOMITING Prescribed by: NOAH BENTLEY on 12/21/19 030 Patient Home Medication List Home Medication List Reviewed: Yes Review of Systems Review of Systems Constitutional: see HPI; No chills, No fever EENTM: No Symptoms Reported Respiratory: No Symptoms Reported Cardiovascular: See HPI, Chest Pain Gastrointestinal: See HPI Genitourinary: No Symptoms Reported Musculoskeletal: no symptoms reported Skin: no symptoms reported Psychiatric/Neurological: See HPI, Anxiety Endocrine: No Symptoms Reported Hematologic/Lymphatic: No Symptoms Reported Past Khobavm-Doqgnu-Ynrmdo Hx Patient Social History Alcohol Use: Occasionally Uses Number of Drinks Today: GG Alcohol Beverage of Choice: Whiskey Recreational Drug Use: Yes Drug of Choice: MARIJUANNA Smoking Status: Current Everyday Smoker Type Used: Cigarettes 2nd Hand Smoke Exposure: Yes Recent Foreign Travel: No Contact w/Someone Who Travel: No Recent Infectious Disease Expo: No Recent Hopitalizations: No Physical Abuse: No Sexual Abuse: No Mistreated: No Fear: No Immunizations Up To Date Tetanus Booster (TDap): Unknown Date of Influenza Vaccine: Dec 15, 2011 Seasonal Allergies Seasonal Allergies: No Past Medical History Surgeries: No Section, Tubal Ligation Respiratory: No Cardiac: Yes Hypertension, Palpitations Neurological: No 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 oz. 57.276967qa; 25.00 BMI Method:Stated General Appearance: No Apparent Distress, WD/WN, Anxious Neck: Full Range of Motion, Normal Inspection Respiratory: No Accessory Muscle Use, No Respiratory Distress Gastrointestinal: Non Tender Extremity: Normal Capillary Refill, Normal Inspection Neurologic/Psychiatric: Alert, Oriented x3 Skin: Normal Color, Warm/Dry Progress/Results/Core Measures Results/Orders Lab Results Laboratory Tests Test 08/04/20 12:55 08/04/20 13:23 Range/Units White Blood Count 8.1 4.3-11.0 10^3/uL Red Blood Count 4.23 L 4.35-5.85 10^6/uL Hemoglobin 13.5 11.5-16.0 G/DL Hematocrit 39 35-52 % Mean Corpuscular Volume 93 80-99 FL Mean Corpuscular Hemoglobin 32 25-34 PG Mean Corpuscular Hemoglobin Concent 34 32-36 G/DL Red Cell Distribution Width 13.6 10.0-14.5 % Platelet Count 414 H 130-400 10^3/uL Mean Platelet Volume 10.0 7.4-10.4 FL Neutrophils (%) (Auto) 58 42-75 % Lymphocytes (%) (Auto) 31 12-44 % Monocytes (%) (Auto) 8 0-12 % Eosinophils (%) (Auto) 4 0-10 % Basophils (%) (Auto) 1 0-10 % Neutrophils # (Auto) 4.7 1.8-7.8 X 10^3 Lymphocytes # (Auto) 2.5 1.0-4.0 X 10^3 Monocytes # (Auto) 0.6 0.0-1.0 X 10^3 Eosinophils # (Auto) 0.3 0.0-0.3 10^3/uL Basophils # (Auto) 0.1 0.0-0.1 10^3/uL D-Dimer 0.30 0.00-0.49 UG/ML Sodium Level 137 135-145 MMOL/L Potassium Level 4.1 3.6-5.0 MMOL/L Chloride Level 103 98-107 MMOL/L Carbon Dioxide Level 23 21-32 MMOL/L Anion Gap 11 5-14 MMOL/L Blood Urea Nitrogen 12 7-18 MG/DL Creatinine 1.03 0.60-1.30 MG/DL Estimat Glomerular Filtration Rate > 60 BUN/Creatinine Ratio 12 Glucose Level 102 70-105 MG/DL Calcium Level 10.0 8.5-10.1 MG/DL Corrected Calcium 8.5-10.1 MG/DL Total Bilirubin 0.3 0.1-1.0 MG/DL Aspartate Amino Transf (AST/SGOT) 20 5-34 U/L Alanine Aminotransferase (ALT/SGPT) 15 0-55 U/L Alkaline Phosphatase 78 40-136 U/L Troponin I < 0.028 <0.028 NG/ML Total Protein 8.5 H 6.4-8.2 GM/DL Albumin 5.1 H 3.2-4.5 GM/DL Thyroid Stimulating Hormone (TSH) 1.23 0.35-4.94 UIU/ML Free Thyroxine 0.85 0.70-1.48 NG/DL Serum Test, Qualitative NEGATIVE NEGATIVE Urine Opiates Screen NEGATIVE NEGATIVE Urine Oxycodone Screen NEGATIVE NEGATIVE Urine Methadone Screen NEGATIVE NEGATIVE Urine Propoxyphene Screen NEGATIVE NEGATIVE Urine Barbiturates Screen NEGATIVE NEGATIVE Ur Tricyclic Antidepressants Screen NEGATIVE NEGATIVE Urine Phencyclidine Screen NEGATIVE NEGATIVE Urine Amphetamines Screen NEGATIVE NEGATIVE Urine Methamphetamines Screen NEGATIVE NEGATIVE Urine Benzodiazepines Screen NEGATIVE NEGATIVE Urine Cocaine Screen NEGATIVE NEGATIVE Urine Cannabinoids Screen POSITIVE H NEGATIVE My Orders Orders - LISA HENRY APRN Cbc With Automated Diff (08/04/20 13:09) Hcg,Qualitative Serum (08/04/20 13:09) Comprehensive Metabolic Panel (08/04/20 13:09) Thyroid Stimulating Hormone (08/04/20 13:09) Free T4 (Free Thyroxine) (08/04/20 13:09) Fibrin Degradation Products (08/04/20 13:09) Troponin I (08/04/20 13:09) Ekg Tracing (08/04/20 13:09) Chest 1 View, Ap/Pa Only (08/04/20 13:09) Ed Iv/Invasive Line Start (08/04/20 13:09) Drug Screen Stat (Urine) (08/04/20 13:09) Lorazepam Injection (Ativan Injection) (08/04/20 13:15) Medications Given in ED Current Medications Medications Dose Ordered Sig/Deejay Route Start Time Stop Time Status Last Admin Dose Admin Lorazepam 0.5 mg ONCE PRN IVP 08/04/20 13:15 08/04/20 13:27 0.5 MG Vital Signs/I&O 08/04/20 08/04/20 12:50 12:50 Temp 36.9 Pulse 93 Resp 22 B/P (MAP) 121/74 (90) Pulse Ox 99 O2 Delivery Room Air Room Air Blood Pressure Mean: 90 Departure Impression Primary Impression: Anxiety Additional Impression: Chest pain Qualified Codes: R07.9 - Chest pain, unspecified Disposition: 01 HOME, SELF-CARE Condition: Stable Departure-Patient Inst. Decision time for Depature: 13:56 Referrals: RONY SANCHEZ DO (PCP) Primary Care Physician FOSTER CALDERON APRN (Family) Primary Care Physician Patient Instructions: Chest Pain Add. Discharge Instructions: 1. Return to ER for any concerns 2. Follow-up with her doctor next week 3. All discharge instructions reviewed with patient and/or family. Voiced understanding. Scripts Escitalopram Oxalate (Lexapro) 10 Mg Tablet 10 MG PO DAILY, #30 TAB Prov: LISA HENRY APRN 08/04/20 Lorazepam (Ativan) 0.5 Mg Tablet 0.5 MG PO BID PRN for ANXIETY for 7 Days, #10 TAB Prov: LISA HENRY APRN 08/04/20 LISA HENRY APRN Aug 04, 2020 13:19
[2020-08-04 13:20] LABS: CARBON DIOXIDE 23 MMOL/L (21-32)
[2020-08-04 13:21] LABS: BILIRUBIN,TOTAL 0.3 MG/DL (0.1-1.0)
[2020-08-04 13:23] LABS: ALKALINE PHOSPHATASE 78 U/L (40-136); CREATININE SERUM 1.03 MG/DL (0.60-1.30); GFR ESTIMATED > 60
[2020-08-04 13:24] LABS: BUN/CREATININE RATIO 12
[2020-08-04 13:26] LABS: ALANINE AMINOTRANSFERASE 15 U/L (0-55)
[2020-08-04 13:40] LABS: AMPHETAMINE SCREEN, URINE NEGATIVE (NEGATIVE); BARBITURATE SCREEN URINE NEGATIVE (NEGATIVE); BENZODIAZEPINES SCREEN URINE NEGATIVE (NEGATIVE); CANNABINOID SCREEN, URINE POSITIVE (NEGATIVE); COCAINE SCREEN URINE NEGATIVE (NEGATIVE); METHADONE STAT NEGATIVE (NEGATIVE); METHAMPHETAMINE SCREEN URINE S NEGATIVE (NEGATIVE); OPIATE SCREEN URINE NEGATIVE (NEGATIVE); OXYCODONE STAT NEGATIVE (NEGATIVE); PROPOXYPHENE STAT NEGATIVE (NEGATIVE); TRICYCLIC ANTIDEPRESSANTS SCRE NEGATIVE (NEGATIVE)
--- NOTE | 2020-08-04 13:41 | Diagnostic Imaging Report ---
INDICATION: Chest pain and cyanosis. TECHNIQUE: Single AP view of the chest is obtained with comparison made to study of 05/31/2020. FINDINGS: Heart size and pulmonary vascularity are within normal limits, and the lungs are clear, bilaterally. IMPRESSION: Unremarkable chest. Dictated by: Dictated on workstation # [id number]
[2020-08-04 13:46] LABS: FREE T4 (FREE THYROXINE) 0.85 NG/DL (0.70-1.48)
[2020-08-04] MEDS ORDERED: ESCI10TA PO (14:06)
[2020-08-04] MEDS ORDERED: LORA-404 PO (14:06)
[2020-08-04 14:12] VITALS: BP 115/69
== END 2020-08-04 14:13 | disposition home or self-care (01) ==
LOC: EDUNIT# 12:47 → ER 12:48
DX: F41.9 Anxiety disorder, unspecified (principal); R07.9 Chest pain, unspecified; F17.210 Nicotine dependence, cigarettes, uncomplicated; Z91.040 Latex allergy status
CPT/HCPCS: 36415; 71045; 80053; 80306; 84439; 84443; 84484; 84703; 85025; 85379; 93005

== ENCOUNTER 2020-08-05 11:14 | Emergency (ER) | payer SELFPAY ==
[~2020-08-05] VITALS: Ht 160 cm; Wt 68.0 kg
[~2020-08-05 11:14] MED LIST changes: +ESCI10TA PO; +LORA-404 PO
--- NOTE | 2020-08-05 11:41 | NUR ---
Pt reports going through a divorce and seeing a counselor for this problem. states extremely anxious, unable to sleep.
[2020-08-05 11:43] LABS: BASOPHILS # (AUTO) 0.1 10^3/uL (0.0-0.1); BASOPHILS % (AUTO) 1 % (0-10); EOSINOPHILS # (AUTO) 0.3 10^3/uL (0.0-0.3); EOSINOPHILS % (AUTO) 3 % (0-10); HEMATOCRIT 37 % (35-52); HEMOGLOBIN 12.4 g/dL (11.5-16.0); LYMPHOCYTES # (AUTO) 1.9 10^3/uL (1.0-4.0); LYMPHOCYTES % (AUTO) 21 % (12-44); MEAN CORPUSCULAR HEMOGLOBIN 32 pg (25-34); MEAN CORPUSCULAR HGB CONC 34 g/dL (32-36); MEAN CORPUSCULAR VOLUME 95 fL (80-99); MEAN PLATELET VOLUME 9.6 fL (9.0-12.2); MONOCYTES # (AUTO) 0.6 10^3/uL (0.0-1.0); MONOCYTES % (AUTO) 7 % (0-12); NEUTROPHILS # (AUTO) 6.2 10^3/uL (1.8-7.8); NEUTROPHILS % (AUTO) 68 % (42-75); PLATELET COUNT 363 10^3/uL (130-400); WHITE BLOOD COUNT 9.1 10^3/uL (4.3-11.0)
[2020-08-05 11:51] LABS: ALBUMIN 4.7 GM/DL (3.2-4.5)
[2020-08-05 11:52] LABS: CHLORIDE 105 MMOL/L (98-107); POTASSIUM 4.2 MMOL/L (3.6-5.0); SODIUM 136 MMOL/L (135-145)
[2020-08-05 11:53] LABS: CALCIUM 9.6 MG/DL (8.5-10.1)
[2020-08-05 11:54] LABS: GLUCOSE 94 MG/DL (70-105); TOTAL PROTEIN 7.7 GM/DL (6.4-8.2)
[2020-08-05 11:55] LABS: CARBON DIOXIDE 23 MMOL/L (21-32)
[2020-08-05 11:56] LABS: BILIRUBIN,TOTAL 0.2 MG/DL (0.1-1.0)
[2020-08-05 11:57] LABS: ALKALINE PHOSPHATASE 74 U/L (40-136)
[2020-08-05 11:58] LABS: CREATININE SERUM 0.97 MG/DL (0.60-1.30); GFR ESTIMATED > 60
[2020-08-05 11:59] LABS: BUN/CREATININE RATIO 12
[2020-08-05 12:00] LABS: ALANINE AMINOTRANSFERASE 14 U/L (0-55)
--- NOTE | 2020-08-05 12:22 | ED Cardiac General ---
History of Present Illness General Chief Complaint: Chest Pain Stated Complaint: CHEST PAIN Nursing Triage Note: pt c/o chest pain, seen here yesterday for same complaint. states she has not been able to sleep. pain bilateral chest and up to neck. Source: patient Exam Limitations: no limitations History of Present Illness Date Seen by Provider: Aug 05, 2020 Time Seen by Provider: 11:35 Initial Comments 30 year old female who present to the ER with continued chest pain. She reports that she was here yesterday with the same complaint and reports that she has had continued chest pain. She reports that her and her are going through a separation and she was diagnosed with anxiety yesterday. She states that she was prescribed ativan with out relief. She denies shortness of breath, light headedness. Timing/Duration: 2-3 days Location: substernal Prior CP/Workup: no prior chest pain NTG SL PUBLIC POLICY COORDINATOR: No ASA po PUBLIC POLICY COORDINATOR: No Associated Systoms: Chest Pain Allergies and Home Medications Allergies Coded Allergies: latex (Verified Allergy, Unknown, 11/18/14) Home Medications Cefdinir 300 Mg Capsule, 300 MG PO BID Prescribed by: NOAH BENTLEY on 12/21/19 0303 Clonazepam 0.5 Mg Tablet, 0.5 MG PO BID Prescribed by: HUGO CUELLO on 09/05/15 2303 Escitalopram Oxalate 10 Mg Tablet, 10 MG PO DAILY Prescribed by: LISA HENRY on 08/04/20 1406 Hydrocodone Bit/Acetaminophen 1 Each Tablet, 1 EACH PO Q4H PRN for PAIN Prescribed by: NOBLE FOSTER on 07/12/16 1454 Hydrocodone Bit/Acetaminophen 1 Tab Tab, 1 EACH PO Q4-6HR PRN for PAIN-MODERATE Prescribed by: NOAH BENTLEY on 12/21/19 0303 Lorazepam 0.5 Mg Tablet, 0.5 MG PO BID PRN for ANXIETY Prescribed by: LISA HENRY on 08/04/20 1406 Olanzapine 5 Mg Tablet, 5 MG PO HS PRN for INSOMNIA Prescribed by: NOAH BENTLEY on 05/31/20 1413 Ondansetron 4 Mg Tab.rapdis, 4 MG PO Q6H PRN for NAUSEA/VOMITING Prescribed by: NOAH BENTLEY on 12/21/19 030 Patient Home Medication List Home Medication List Reviewed: Yes Review of Systems Review of Systems Constitutional: see HPI; No chills, No fever Cardiovascular: See HPI, Chest Pain Psychiatric/Neurological: See HPI, Anxiety, Depressed, Emotional Problems, Headache All Other Systems Reviewed Negative Unless Noted: Yes Past Swvlday-Andnht-Fziyrk Hx Past Med/Social Hx: Reviewed Nursing Past Med/Soc Hx Patient Social History Alcohol Beverage of Choice: Whiskey Drug of Choice: MARIJUANNA Type Used: Cigarettes 2nd Hand Smoke Exposure: Yes Recent Foreign Travel: No Contact w/Someone Who Travel: No Recent Infectious Disease Expo: No Recent Hopitalizations: No Physical Abuse: No Sexual Abuse: No Mistreated: No Immunizations Up To Date Tetanus Booster (TDap): Unknown Date of Influenza Vaccine: Dec 15, 2011 Seasonal Allergies Seasonal Allergies: No Past Medical History Surgeries: No Section, Tubal Ligation Respiratory: No Cardiac: Yes Hypertension, Palpitations Neurological: No Last Menstrual Period: Jul 22, 2020 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 oz. 57.532466cd; 26.00 BMI Method:Stated General Appearance: No Apparent Distress, WD/WN Respiratory: Chest Non Tender, Lungs Clear, Normal Breath Sounds, No Accessory Muscle Use, No Respiratory Distress Cardiovascular: Regular Rate, Rhythm, No Edema, No Gallop, No JVD, No Murmur, Normal Peripheral Pulses Extremity: Normal Capillary Refill, Non Tender, No Calf Tenderness Neurologic/Psychiatric: Alert, Oriented x3, Depressed Affect Skin: Normal Color, Warm/Dry Progress/Results/Core Measures Results/Orders Lab Results Laboratory Tests Test 08/05/20 11:37 Range/Units White Blood Count 9.1 4.3-11.0 10^3/uL Red Blood Count 3.88 3.80-5.11 10^6/uL Hemoglobin 12.4 11.5-16.0 g/dL Hematocrit 37 35-52 % Mean Corpuscular Volume 95 80-99 fL Mean Corpuscular Hemoglobin 32 25-34 pg Mean Corpuscular Hemoglobin Concent 34 32-36 g/dL Red Cell Distribution Width 13.3 10.0-14.5 % Platelet Count 363 130-400 10^3/uL Mean Platelet Volume 9.6 9.0-12.2 fL Immature Granulocyte % (Auto) 0 % Neutrophils (%) (Auto) 68 42-75 % Lymphocytes (%) (Auto) 21 12-44 % Monocytes (%) (Auto) 7 0-12 % Eosinophils (%) (Auto) 3 0-10 % Basophils (%) (Auto) 1 0-10 % Neutrophils # (Auto) 6.2 1.8-7.8 10^3/uL Lymphocytes # (Auto) 1.9 1.0-4.0 10^3/uL Monocytes # (Auto) 0.6 0.0-1.0 10^3/uL Eosinophils # (Auto) 0.3 0.0-0.3 10^3/uL Basophils # (Auto) 0.1 0.0-0.1 10^3/uL Immature Granulocyte # (Auto) 0.0 0.0-0.1 10^3/uL Sodium Level 136 135-145 MMOL/L Potassium Level 4.2 3.6-5.0 MMOL/L Chloride Level 105 98-107 MMOL/L Carbon Dioxide Level 23 21-32 MMOL/L Anion Gap 8 5-14 MMOL/L Blood Urea Nitrogen 12 7-18 MG/DL Creatinine 0.97 0.60-1.30 MG/DL Estimat Glomerular Filtration Rate > 60 BUN/Creatinine Ratio 12 Glucose Level 94 70-105 MG/DL Calcium Level 9.6 8.5-10.1 MG/DL Corrected Calcium 8.5-10.1 MG/DL Total Bilirubin 0.2 0.1-1.0 MG/DL Aspartate Amino Transf (AST/SGOT) 17 5-34 U/L Alanine Aminotransferase (ALT/SGPT) 14 0-55 U/L Alkaline Phosphatase 74 40-136 U/L Troponin I < 0.028 <0.028 NG/ML Total Protein 7.7 6.4-8.2 GM/DL Albumin 4.7 H 3.2-4.5 GM/DL My Orders Orders - TITO AGARWAL Troponin I (08/05/20 11:35) Chest 1 View, Ap/Pa Only (08/05/20 11:35) Ekg Tracing (08/05/20 11:35) Ed Iv/Invasive Line Start (08/05/20 11:35) Monitor-Rhythm Ecg Trace Only (08/05/20 11:35) Cbc With Automated Diff (08/05/20 11:36) Comprehensive Metabolic Panel (08/05/20 11:36) Vital Signs/I&O 08/05/20 08/05/20 11:17 11:18 Pulse 77 Resp 16 B/P (MAP) 114/78 (90) Pulse Ox 100 O2 Delivery Room Air Room Air Blood Pressure Mean: 90 Progress Progress Note : Time: 12:23 Progress Note I have seen and evaluated the patient. She has appointment with PCP at 1320 toda y for this issue. She has ativan at home. Will try dose of toradol for pain relief. She agrees with plan of care, plans for discharge, return precautions were given. Departure Impression Primary Impression: Anxiety Disposition: 01 HOME, SELF-CARE Condition: Stable/Unchanged Departure-Patient Inst. Decision time for Depature: 12:25 Referrals: RONY SANCHEZ DO (PCP) Primary Care Physician FOSTER CALDERON APRN (Family) Primary Care Physician Patient Instructions: Anxiety, Adult (DC), Chest Pain That Is Not Caused by the Heart (DC) Add. Discharge Instructions: You may use benadryl, ibuprofen and tylenol as needed for additional relief. Continue ativan as needed. Follow up as planned with PCP. Return to the ER for worsening symptoms or concerns as needed. All discharge instructions reviewed with patient and/or family. Voiced understanding. TITO AGARWAL Aug 05, 2020 12:22
[2020-08-05] MEDS ORDERED: KETOROLAC 30 MG/ML VIAL IVP ONE (12:45)
[2020-08-05] MEDS ORDERED: diphenhydrAMINE 50 MG/ML INJ (BENADRYL) IVP ONE (12:45)
--- NOTE | 2020-08-05 12:51 | Diagnostic Imaging Report ---
CLINICAL INDICATION: Patient complains of chest pain. Patient seen here yesterday for same symptoms. Patient unable to sleep. EXAM: Portable chest x-ray upright view. COMPARISONS: Chest x-ray dated 08/04/2020. FINDINGS: Lungs/pleura: Lungs are clear. There is no pneumothorax. There is no pleural effusion. Mediastinum: Unremarkable. Pulmonary vasculature: Unremarkable. Heart: Unremarkable. Bones/extrathoracic soft tissue: Unremarkable. IMPRESSION: Stable chest x-ray exam with no radiographic evidence of acute cardiopulmonary process. Dictated by: Dictated on workstation # [id number]
[2020-08-05 12:55] VITALS: BP 110/67
== END 2020-08-05 12:55 | disposition home or self-care (01) ==
LOC: ER 11:14 → EDUNIT# 11:14 → ER 12:55
DX: F41.9 Anxiety disorder, unspecified (principal); F32.9 Major depressive disorder, single episode, unspecified; Z77.22 Contact with and (suspected) exposure to environmental tobacco smoke (acute) (chronic); Z91.040 Latex allergy status
CPT/HCPCS: 36415; 71045; 80053; 84484; 85025; 93005; 93041

== ENCOUNTER 2020-09-26 08:51 | Emergency (ER) | payer MEDICAID ==
[~2020-09-26] VITALS: Ht 160 cm; Wt 63.5 kg
[2020-09-26] MEDS ORDERED: ASPIRIN 81 MG CHEW (CHILDREN'S ASA) PO ONE (09:30)
[2020-09-26 09:47] VITALS: BP_SYST 108; BP_SYST 112; BP_SYST 125; BP_DIAS 71; BP_DIAS 75; BP_DIAS 79
--- NOTE | 2020-09-26 09:53 | ED Chest Pain ---
General Chief Complaint: Psych/Social Disorder Stated Complaint: CHEST PAIN DIZZY Nursing Triage Note: PT PRESENTS TO ED WITH COMPLAINTS OF CP DESCRIBED AT PRESSURE IN THE CENTER OF HER CHEST X 2 DAYS. PT REPORTS DIFFICULTY WITH SLEEP X 2 DAYS. PT REPORTS THIS MORNING SHE FELT ANXIOUS AND WHEN SHE STOOD UP FROM A SITTING POSITION SHE FAINTED. PT REPORTS SHE HAS FANITED IN THE PAST HER LAST EPISODE WAS 2 YEARS AGO. PT REPORTS SHE IS BEING TREATED FOR ANXIETY AND HAS BEEN SEEN IN ED AND BY HER PRIMARY FOR IT. PT REPORTS SHE LAST CLONAPINE 2 DAYS AGO. PT REPORTS HER ANXIETY IS INCREASED BECAUSE SHE IS GOING THROUGH A SEPERATION. Nursing Sepsis Screen: No Definite Risk Source: patient Exam Limitations: no limitations History of Present Illness Date Seen by Provider: Sep 26, 2020 Time Seen by Provider: 09:21 Initial Comments Patient presents ER by private conveyance from home with chief complaint chest syncopal episode at home. She's been having chest pressure, constant, substernal nonreproducible to palpation for the past 2 days. She associates this with her anxiety from the divorce she is presently going through. She has a history of anxiety disorder on paroxetine by her primary care doctor and has a follow-up appointment with mental health at [facility] [place]. Shedescribes that she was getting her kids up to go to school having a lot of anxiety and ran out of the clonazepam 6 tablets that she was prescribed by her PCP 2 months ago and felt like a panic attacks coming on. She went to stand up from sitting in her chair and passed out. She felt a prodromal flushing syndrome before happened. She says she's had this in the past although her last syncopal episode was a couple years ago and in the past and has always been associated with her anxiety. She says it felt the same today. She does not have a history of coronary disease nor does she have primary family history of coronary disease. She does not have hypertension, hyperlipidemia, diabetes but she does use cannabis and smokes tobacco. The patient adamantly denies any suicidal ideation or homicidal ideation. Allergies and Home Medications Allergies Coded Allergies: latex (Verified Allergy, Unknown, 11/18/14) Home Medications Cefdinir 300 Mg Capsule, 300 MG PO BID Prescribed by: NOAH BENTLEY on 12/21/19 0303 Clonazepam 0.5 Mg Tablet, 0.5 MG PO BID Prescribed by: HUGO CUELLO on 09/05/15 2303 Escitalopram Oxalate 10 Mg Tablet, 10 MG PO DAILY Prescribed by: LISA HENRY on 08/04/20 1406 Hydrocodone Bit/Acetaminophen 1 Each Tablet, 1 EACH PO Q4H PRN for PAIN Prescribed by: NOBLE FOSTER on 07/12/16 1454 Hydrocodone Bit/Acetaminophen 1 Tab Tab, 1 EACH PO Q4-6HR PRN for PAIN-MODERATE Prescribed by: NOAH BENTLEY on 12/21/19 0303 Lorazepam 0.5 Mg Tablet, 0.5 MG PO BID PRN for ANXIETY Prescribed by: LISA HENRY on 08/04/20 1406 Olanzapine 5 Mg Tablet, 5 MG PO HS PRN for INSOMNIA Prescribed by: NOAH BENTLEY on 05/31/20 1413 Ondansetron 4 Mg Tab.rapdis, 4 MG PO Q6H PRN for NAUSEA/VOMITING Prescribed by: NOAH BENTLEY on 12/21/19 030 Patient Home Medication List Home Medication List Reviewed: Yes Review of Systems Review of Systems Constitutional: No chills, No fever EENTM: No Blurred Vision, No Double Vision Respiratory: Denies Cough, Denies Shortness of Air Cardiovascular: See HPI, Chest Pain; Denies Edema, Denies Lightheadedness Gastrointestinal: Denies Abdominal Pain, Denies Constipated, Denies Diarrhea, Denies Nausea Genitourinary: Denies Burning, Denies Discharge Musculoskeletal: No back pain, No joint pain Skin: No pruritus, No rash Psychiatric/Neurological: Anxiety, Depressed All Other Systems Reviewed Negative Unless Noted: Yes Past Epbkmyq-Qbhvfo-Ymbpoe Hx Patient Social History Alcohol Use: Occasionally Uses Number of Drinks Today: GG Alcohol Beverage of Choice: Whiskey Recreational Drug Use: Yes Drug of Choice: MARIJUANNA Smoking Status: Current Everyday Smoker Type Used: Cigarettes 2nd Hand Smoke Exposure: Yes Recent Foreign Travel: No Contact w/Someone Who Travel: No Recent Infectious Disease Expo: No Recent Hopitalizations: No Physical Abuse: No Sexual Abuse: No Mistreated: No Fear: No Immunizations Up To Date Tetanus Booster (TDap): Unknown Date of Influenza Vaccine: Dec 15, 2011 Seasonal Allergies Seasonal Allergies: No Past Medical History Surgeries: No Section, Tubal Ligation Respiratory: No Cardiac: Yes Hypertension, Palpitations Neurological: No 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 oz. 57.665904hc; 24.00 BMI Method:Stated General Appearance: WD/WN, Anxious HEENT: PERRL/EOMI, Pharynx Normal, Moist Mucous Membranes Neck: Normal Inspection, Non Tender Respiratory: Lungs Clear, Normal Breath Sounds, No Accessory Muscle Use, No Respiratory Distress Cardiovascular: Regular Rate, Rhythm, No Edema, Normal Peripheral Pulses Extremity: Normal Capillary Refill, Normal Inspection, Non Tender, No Pedal Edema Neurologic/Psychiatric: Alert, Oriented x3 Skin: Normal Color, Warm/Dry Progress/Results/Core Measures Results/Orders Lab Results Laboratory Tests Test 09/26/20 10:03 Range/Units White Blood Count 11.2 H 4.3-11.0 10^3/uL Red Blood Count 4.61 3.80-5.11 10^6/uL Hemoglobin 14.9 11.5-16.0 g/dL Hematocrit 44 35-52 % Mean Corpuscular Volume 96 80-99 fL Mean Corpuscular Hemoglobin 32 25-34 pg Mean Corpuscular Hemoglobin Concent 34 32-36 g/dL Red Cell Distribution Width 13.2 10.0-14.5 % Platelet Count 392 130-400 10^3/uL Mean Platelet Volume 9.5 9.0-12.2 fL Immature Granulocyte % (Auto) 0 % Neutrophils (%) (Auto) 78 H 42-75 % Lymphocytes (%) (Auto) 15 12-44 % Monocytes (%) (Auto) 5 0-12 % Eosinophils (%) (Auto) 1 0-10 % Basophils (%) (Auto) 1 0-10 % Neutrophils # (Auto) 8.8 H 1.8-7.8 10^3/uL Lymphocytes # (Auto) 1.7 1.0-4.0 10^3/uL Monocytes # (Auto) 0.6 0.0-1.0 10^3/uL Eosinophils # (Auto) 0.1 0.0-0.3 10^3/uL Basophils # (Auto) 0.1 0.0-0.1 10^3/uL Immature Granulocyte # (Auto) 0.0 0.0-0.1 10^3/uL Prothrombin Time 13.0 12.2-14.7 SEC INR Comment 0.9 0.8-1.4 Activated Partial Thromboplast Time 25 24-35 SEC Sodium Level 137 135-145 MMOL/L Potassium Level 4.1 3.6-5.0 MMOL/L Chloride Level 100 98-107 MMOL/L Carbon Dioxide Level 22 21-32 MMOL/L Anion Gap 15 H 5-14 MMOL/L Blood Urea Nitrogen 15 7-18 MG/DL Creatinine 1.05 0.60-1.30 MG/DL Estimat Glomerular Filtration Rate > 60 BUN/Creatinine Ratio 14 Glucose Level 98 70-105 MG/DL Calcium Level 10.5 H 8.5-10.1 MG/DL Corrected Calcium 8.5-10.1 MG/DL Magnesium Level 2.1 1.6-2.4 MG/DL Total Bilirubin 0.3 0.1-1.0 MG/DL Aspartate Amino Transf (AST/SGOT) 19 5-34 U/L Alanine Aminotransferase (ALT/SGPT) 15 0-55 U/L Alkaline Phosphatase 92 40-136 U/L Myoglobin 37.6 10.0-92.0 NG/ML Troponin I < 0.028 <0.028 NG/ML B-Type Natriuretic Peptide < 10.0 <100.0 PG/ML Total Protein 9.1 H 6.4-8.2 GM/DL Albumin 5.6 H 3.2-4.5 GM/DL My Orders Orders - NOAH BENTLEY Continuous Ekg Monitoring (09/26/20) Ekg Tracing (09/26/20) Cbc With Automated Diff (09/26/20) Magnesium (09/26/20) Chest 1 View, Ap/Pa Only (09/26/20) Comprehensive Metabolic Panel (09/26/20) Myoglobin Serum (09/26/20) Protime With Inr (11/13/20 09:29) Partial Thromboplastin Time (09/26/20 09:29) O2 (09/26/20 09:29) Lipid Panel (09/27/20 06:00) Ed Iv/Invasive Line Start (09/26/20 09:29) BNP (09/26/20 09:29) Troponin I (09/26/20 09:29) Aspirin Chewable Tablet (Baby Aspirin Ch (09/26/20 09:30) Orthostatic Vital Signs (Adult (09/26/20 09:36) Clonazepam Tablet (Klonopin Tablet) (09/26/20 10:00) Medications Given in ED Current Medications Medications Dose Ordered Sig/Deejay Route Start Time Stop Time Status Last Admin Dose Admin Aspirin 324 mg ONCE ONCE PO 09/26/20 09:30 09/26/20 09:31 DC 09/26/20 09:52 324 MG Clonazepam 0.5 mg ONCE ONCE PO 09/26/20 10:00 09/26/20 10:01 DC 09/26/20 10:02 0.5 MG Vital Signs/I&O 09/26/20 09/26/20 09:03 09:47 Temp 35.4 Pulse 92 77 79 91 Resp 18 B/P (MAP) 139/92 (108) 108/71 (83) 125/75 (92) 112/79 (90) Pulse Ox 99 Blood Pressure Mean: 108 Progress Progress Note : Time: 09:54 Progress Note Although her history suggests that all of her symptoms stem from her anxiety, panic disorder related to her ongoing marital dyssynchrony it is concerning that she had a syncopal episode with chest pressure. Were going to get a baseline set of labs, EKG and chest x-ray. Plan to give her clonazepam 0.5 mg. If her labs are reassuring we have offered her a follow-up with cardiology but I suspect that her time is best spent pursuing psychiatric care. Her main risk factor is ongoing tobaccoism. Orthostatic vital signs are not positive. EKG was unremarkable. We can also set her up with a few more doses of clonazepam. The patient has multiple visits in the past several months related to panic disorder and myriad complaints including chest pain, shortness of breath all that after a workup appear to be related to her panic disorder. She has relied on clonazepam in the past. Initial ECG Impression Date: Sep 26, 2020 Initial ECG Impression Time: 09:00 Initial ECG Rate: 86 Initial ECG Rhythm: Normal Sinus Initial ECG Intervals: Normal Initial ECG Impression: Normal Comment Normal sinus rhythm without clinically relevant ST changes. Diagnostic Imaging Diagonstic Imaging: Xray Plain Films/CT/US/NM/MRI: chest Comments NAME: [facility] REC#: [id number] PT STATUS: REG ER : 1990 PHYSICIAN: NOAH BENTLEY MD ADMIT DATE: 09/26/20/ER Draft Date of Exam:09/26/20 CHEST 1 VIEW, AP/PA ONLY INDICATION: Chest pain. TIME OF EXAM: 10:04 a.m. COMPARISON: Correlation is made with prior chest from 08/05/2020. The heart size is normal. The pulmonary vascularity is unremarkable. The lungs are clear. No infiltrate, effusion or pneumothorax is detected. IMPRESSION: No acute cardiopulmonary process is detected. Dictated on workstation # [id number] Dict: 09/26/20 1011 Trans: 09/26/20 1016 [id number] [id number] Interpreted by: JACOB ANTHONY MD Electronically signed by: Reviewed: Reviewed by Me Departure Impression Primary Impression: Panic anxiety syndrome Additional Impressions: Episode of syncope Qualified Codes: R55 - Syncope and collapse Chest pressure Disposition: 01 HOME, SELF-CARE Condition: Stable Departure-Patient Inst. Decision time for Depature: 10:50 Referrals: [facility] [place] (PCP) Primary Care Physician ELPIDIO GUILLORY APRN (Family) Primary Care Physician PRICILA DE LA VEGA MD Patient Instructions: Syncope (Fainting), Panic Disorder (DC) Add. Discharge Instructions: Keep your follow-up appointments with mental health. You may follow-up with your primary care doctor to discuss if more clonazepam can be helpful in the interim. Clonazepam 1 tablet every 8 hours as necessary for panic attack, anxiety. Please follow-up with the enrollment counselor by calling for an appointment within the next 1-2 weeks. Return promptly to the ER for intractable chest pain, shortness of air or other worrisome symptoms. All discharge instructions reviewed with patient and/or family. Voiced understanding. Copy Copies To 1: PRICILA DE LA VEGA MD, TITUS J Sep 26, 2020 09:53
[2020-09-26] MEDS ORDERED: clonazePAM 0.5 MG (KlonoPIN) TAB PO ONE (10:00)
[2020-09-26 10:09] LABS: BASOPHILS # (AUTO) 0.1 10^3/uL (0.0-0.1); BASOPHILS % (AUTO) 1 % (0-10); EOSINOPHILS # (AUTO) 0.1 10^3/uL (0.0-0.3); EOSINOPHILS % (AUTO) 1 % (0-10); HEMATOCRIT 44 % (35-52); HEMOGLOBIN 14.9 g/dL (11.5-16.0); LYMPHOCYTES # (AUTO) 1.7 10^3/uL (1.0-4.0); LYMPHOCYTES % (AUTO) 15 % (12-44); MEAN CORPUSCULAR HEMOGLOBIN 32 pg (25-34); MEAN CORPUSCULAR HGB CONC 34 g/dL (32-36); MEAN CORPUSCULAR VOLUME 96 fL (80-99); MEAN PLATELET VOLUME 9.5 fL (9.0-12.2); MONOCYTES # (AUTO) 0.6 10^3/uL (0.0-1.0); MONOCYTES % (AUTO) 5 % (0-12); NEUTROPHILS # (AUTO) 8.8 10^3/uL (1.8-7.8); NEUTROPHILS % (AUTO) 78 % (42-75); PLATELET COUNT 392 10^3/uL (130-400); WHITE BLOOD COUNT 11.2 10^3/uL (4.3-11.0)
--- NOTE | 2020-09-26 10:16 | Diagnostic Imaging Report ---
INDICATION: Chest pain. TIME OF EXAM: 10:04 a.m. COMPARISON: Correlation is made with prior chest from 08/05/2020. The heart size is normal. The pulmonary vascularity is unremarkable. The lungs are clear. No infiltrate, effusion or pneumothorax is detected. IMPRESSION: No acute cardiopulmonary process is detected. Dictated by: Dictated on workstation # [id number]
[2020-09-26 10:24] LABS: INR 0.9 (0.8-1.4)
[2020-09-26 10:33] LABS: ALANINE AMINOTRANSFERASE 15 U/L (0-55); ALBUMIN 5.6 GM/DL (3.2-4.5); ALKALINE PHOSPHATASE 92 U/L (40-136); BILIRUBIN,TOTAL 0.3 MG/DL (0.1-1.0); BUN/CREATININE RATIO 14; CALCIUM 10.5 MG/DL (8.5-10.1); CARBON DIOXIDE 22 MMOL/L (21-32); CHLORIDE 100 MMOL/L (98-107); CREATININE SERUM 1.05 MG/DL (0.60-1.30); GFR ESTIMATED > 60; GLUCOSE 98 MG/DL (70-105); MAGNESIUM 2.1 MG/DL (1.6-2.4); POTASSIUM 4.1 MMOL/L (3.6-5.0); SODIUM 137 MMOL/L (135-145); TOTAL PROTEIN 9.1 GM/DL (6.4-8.2)
[2020-09-26] MEDS ORDERED: CLON0.5T4 PO (11:01)
[2020-09-26 11:14] VITALS: BP 112/78
== END 2020-09-26 11:14 | disposition home or self-care (01) ==
LOC: EDUNIT# 08:51 → ER 08:54
DX: F41.0 Panic disorder [episodic paroxysmal anxiety] (principal); R55 Syncope and collapse; R07.89 Other chest pain; F32.9 Major depressive disorder, single episode, unspecified; F17.210 Nicotine dependence, cigarettes, uncomplicated; Z91.040 Latex allergy status
CPT/HCPCS: 36415; 71045; 80053; 83735; 83874; 83880; 84484; 85025; 85610; 85730

== ENCOUNTER 2021-02-09 16:43 | Emergency (ER) | payer MEDICAID ==
[~2021-02-09] VITALS: Ht 160 cm; Wt 63.5 kg
[~2021-02-09 16:43] MED LIST changes: -CIPR500T4 PO; +CIPR500T5 PO; +CLON0.5T4 PO; +ESCI-2; -ESCI10TA55
[2021-02-09] MEDS ORDERED: DIAZ5TAB PO (16:56)
--- NOTE | 2021-02-09 16:56 | ED Chest Pain ---
General Chief Complaint: Chest Pain Stated Complaint: CP Source: patient Exam Limitations: no limitations History of Present Illness Date Seen by Provider: Feb 09, 2021 Time Seen by Provider: 16:51 Initial Comments To ER by private vehicle with reports of central chest pain which she believes is part of her panic disorder. She takes no medications for this because she states she does not get these very often. This is been constant since this morning, she does have some associated shortness of breath. No fevers or chills or cough. She feels very anxious because she caught her with another woman last week. No fevers or chills or cough. She drank a pint of vodka last night. She typically does not drink alcohol, certainly not on a regular basis. Timing/Duration: changing over time Severity/Quality: moderate Location: central Radiation: no radiation Activities at Onset: none ASA po AIRPORT SALES AGENT: No NTG SL AIRPORT SALES AGENT: No Associated Symptoms: shortness of breath Allergies and Home Medications Allergies Coded Allergies: latex (Verified Allergy, Unknown, 11/18/14) Home Medications Cefdinir 300 Mg Capsule, 300 MG PO BID Prescribed by: NOAH BENTLEY on 12/21/19 0303 Clonazepam 0.5 Mg Tablet, 0.5 MG PO BID Prescribed by: HUGO CUELLO on 09/05/15 2303 Clonazepam 0.5 Mg Tablet, 0.5 MG PO Q8H PRN for ANXIETY Prescribed by: NOAH BENTLEY on 09/26/20 1102 Escitalopram Oxalate 10 Mg Tablet, 10 MG PO DAILY Prescribed by: LISA HENRY on 08/04/20 1406 Hydrocodone Bit/Acetaminophen 1 Each Tablet, 1 EACH PO Q4H PRN for PAIN Prescribed by: NOBLE FOSTER on 07/12/16 1454 Hydrocodone Bit/Acetaminophen 1 Tab Tab, 1 EACH PO Q4-6HR PRN for PAIN-MODERATE Prescribed by: NOAH BENTLEY on 12/21/19 0303 Lorazepam 0.5 Mg Tablet, 0.5 MG PO BID PRN for ANXIETY Prescribed by: LISA HENRY on 08/04/20 1406 Olanzapine 5 Mg Tablet, 5 MG PO HS PRN for INSOMNIA Prescribed by: NOAH BENTLEY on 05/31/20 1413 Ondansetron 4 Mg Tab.rapdis, 4 MG PO Q6H PRN for NAUSEA/VOMITING Prescribed by: NOAH BENTLEY on 12/21/19 0303 Patient Home Medication List Home Medication List Reviewed: Yes Review of Systems Review of Systems Constitutional: see HPI EENTM: No Symptoms Reported Respiratory: Orthopnea, Shortness of Air Cardiovascular: See HPI, Chest Pain Gastrointestinal: See HPI Genitourinary: No Symptoms Reported Musculoskeletal: no symptoms reported Skin: no symptoms reported Psychiatric/Neurological: See HPI, Anxiety Endocrine: No Symptoms Reported Hematologic/Lymphatic: No Symptoms Reported Past Xoapyds-Jfisak-Ajsshq Hx Patient Social History Alcohol Use: Occasionally Uses Number of Drinks Today: GG Alcohol Beverage of Choice: Whiskey Drug of Choice: MARIJUANNA Type Used: Cigarettes 2nd Hand Smoke Exposure: Yes Recent Hopitalizations: No Immunizations Up To Date Tetanus Booster (TDap): Unknown Date of Influenza Vaccine: Dec 15, 2011 Seasonal Allergies Seasonal Allergies: No Past Medical History Surgeries: Yes Section, Tubal Ligation Respiratory: No Cardiac: Yes Hypertension, Palpitations Neurological: No 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 oz. 57.580253ms; 24.00 BMI Method:Stated General Appearance: No Apparent Distress, WD/WN, Anxious HEENT: PERRL/EOMI, TMs Normal Respiratory: No Accessory Muscle Use, No Respiratory Distress Gastrointestinal: Normal Bowel Sounds, Non Tender, Soft Extremity: Normal Capillary Refill, Normal Inspection Neurologic/Psychiatric: Alert, Oriented x3 Skin: Normal Color, Warm/Dry Progress/Results/Core Measures Results/Orders My Orders Orders - LISA HENRY APRN Comprehensive Metabolic Panel (02/09/21 16:50) Cbc And Manual Diff (02/09/21 16:50) Alcohol (02/09/21 16:50) Ed Iv/Invasive Line Start (02/09/21 16:50) Lorazepam Injection (Ativan Injection) (02/09/21 17:00) Departure Impression Primary Impression: Panic anxiety syndrome Disposition: 01 HOME, SELF-CARE Condition: Stable Departure-Patient Inst. Decision time for Depature: 16:54 Referrals: [facility] (PCP) Primary Care Physician ELPIDIO GUILLORY APRN (Family) Primary Care Physician Patient Instructions: Anxiety, Adult (DC) Add. Discharge Instructions: Follow-up with your doctor to discuss starting a medication to help control your anxiety. Return to ER for any concerns. All discharge instructions reviewed with patient and/or family. Voiced understanding. Scripts Diazepam (Valium) 5 Mg Tablet 5 MG PO BID PRN for AIR HUNGER, #10 TAB Prov: LISA HENRY APRN 02/09/21 LISA HENRY APRN Feb 09, 2021 16:56
[2021-02-09] MEDS ORDERED: LORazepam INJ 2 MG/ML (ATIVAN) VIAL IVP PRN (17:00)
[2021-02-09 17:34] LABS: BASOPHILS # (AUTO) 0.1 10^3/uL (0.0-0.1); BASOPHILS % (AUTO) 1 % (0-10); EOSINOPHILS # (AUTO) 0.1 10^3/uL (0.0-0.3); EOSINOPHILS % (AUTO) 1 % (0-10); HEMATOCRIT 44 % (35-52); HEMOGLOBIN 15.2 g/dL (11.5-16.0); LYMPHOCYTES % (AUTO) 15 % (12-44); MEAN CORPUSCULAR HEMOGLOBIN 33 pg (25-34); MEAN CORPUSCULAR HGB CONC 34 g/dL (32-36); MEAN CORPUSCULAR VOLUME 95 fL (80-99); MEAN PLATELET VOLUME 9.4 fL (9.0-12.2); MONOCYTES # (AUTO) 0.9 10^3/uL (0.0-1.0); MONOCYTES % (AUTO) 6 % (0-12); NEUTROPHILS # (AUTO) 10.9 10^3/uL (1.8-7.8); NEUTROPHILS % (AUTO) 78 % (42-75); PLATELET COUNT 422 10^3/uL (130-400); WHITE BLOOD COUNT 14.1 10^3/uL (4.3-11.0)
[2021-02-09 17:47] LABS: ALBUMIN 4.8 GM/DL (3.2-4.5); CHLORIDE 101 MMOL/L (98-107); POTASSIUM 4.6 MMOL/L (3.6-5.0); SODIUM 139 MMOL/L (135-145)
[2021-02-09 17:48] LABS: CALCIUM 9.9 MG/DL (8.5-10.1)
[2021-02-09 17:50] LABS: GLUCOSE 93 MG/DL (70-105)
[2021-02-09 17:51] LABS: BILIRUBIN,TOTAL 0.3 MG/DL (0.1-1.0); CARBON DIOXIDE 22 MMOL/L (21-32)
[2021-02-09 17:53] LABS: ALKALINE PHOSPHATASE 90 U/L (40-136); CREATININE SERUM 0.83 MG/DL (0.60-1.30); GFR ESTIMATED > 60
[2021-02-09 17:54] LABS: BAND NEUTROPHILS 0 %; BASOPHILS % (MANUAL) 0 %; BUN/CREATININE RATIO 10; EOSINOPHILS % (MANUAL) 2 %; LYMPHOCYTES % (MANUAL) 12 %; MONOCYTES % (MANUAL) 8 %; NEUTROPHILS % (MANUAL) 76 %; RBC MORPH NORMAL; REACTIVE LYMPHOCYTES 2 %
[2021-02-09 17:56] LABS: ALANINE AMINOTRANSFERASE 15 U/L (0-55)
[2021-02-09] MEDS ORDERED: ONDANSETRON 4 MG/2 ML (SDV) Z0FRAN ONE (18:19)
[2021-02-09] MEDS ORDERED: ONDANSETRON 4 MG/2 ML (SDV) Z0FRAN IVP ONE (18:30)
[2021-02-09 18:31] VITALS: BP 130/71
== END 2021-02-09 18:32 | disposition home or self-care (01) ==
LOC: EDUNIT# 16:43 → ER 16:44
DX: F41.0 Panic disorder [episodic paroxysmal anxiety] (principal); F32.9 Major depressive disorder, single episode, unspecified; I10 Essential (primary) hypertension; Z77.22 Contact with and (suspected) exposure to environmental tobacco smoke (acute) (chronic); Z91.040 Latex allergy status
CPT/HCPCS: 80053; 84484; 85007; 85027; 85379; 93005; 99284; G0480; 36415; 80320

== ENCOUNTER 2021-10-05 12:29 | Emergency (ER) | payer MEDICAID ==
[~2021-10-05] VITALS: Ht 162 cm; Wt 69.0 kg
[~2021-10-05 12:29] MED LIST changes: +DIAZ5TAB PO
[2021-10-05 12:30] VITALS: BP 138/67
--- NOTE | 2021-10-05 12:45 | ED Back Pain ---
General Stated Complaint: FEVER, SWEATS, CHILLS Source of Information: Patient Exam Limitations: No Limitations History of Present Illness Date Seen by Provider: Oct 05, 2021 Time Seen by Provider: 12:35 Initial Comments This is a well-appearing 31-year-old female who presented to the ER via POV with complaints of subjective fevers, chills, left flank pain that has now progressed to her right side for the past 3 days.States that she has been taking Tylenol and ibuprofen [id number] and has not provided any relief of her symptoms. Yesterday she was seen at [facility] and was given a Covid test and strep test, both were negative at that time. States that she took ibuprofen 800 mg this morning and has had no relief of her symptoms. Additionally states that she has had some blood in her urine and does have a history of left kidney stones. States that she feels tired all the time and whenever she gets up and walks around she feels heaviness in her chest and short of breath. States that she does have a history of anxiety and panic attacks but over the past few days her heart rate has continually stayed elevated. No cough, chest pain, rashes, abdominal pain, nausea, vomiting, dysuria. Timing/Duration: 3-4 Days Severity: Moderate Pain/Injury Location: Other (bilateral flank region ) Modifying Factors: Improves With Movement Allergies and Home Medications Allergies Coded Allergies: latex (Verified Allergy, Unknown, 11/18/14) Patient Home Medication List Home Medication List Reviewed: Yes Cefdinir (Cefdinir) 300 Mg Capsule, 300 MG PO BID Prescribed by: NOAH BENTLEY on 12/21/19 0303 Clonazepam (Klonopin) 0.5 Mg Tablet, 0.5 MG PO BID Prescribed by: HUGO CUELLO on 09/05/15 2303 Clonazepam (Clonazepam) 0.5 Mg Tablet, 0.5 MG PO Q8H PRN for ANXIETY Prescribed by: NOAH BENTLEY on 09/26/20 1102 Diazepam (Valium) 5 Mg Tablet, 5 MG PO BID PRN for AIR HUNGER Prescribed by: LISA HENRY on 02/09/21 1656 Escitalopram Oxalate (Escitalopram Oxalate) 10 Mg Tablet, (Reported) Entered as Reported by: AMBER QUEEN on 07/12/16 1336 Escitalopram Oxalate (Lexapro) 10 Mg Tablet, 10 MG PO DAILY Prescribed by: LISA HERNY on 08/04/20 1406 Hydrocodone Bit/Acetaminophen (Lortab 5 Mg Tablet) 1 Each Tablet, 1 EACH PO Q4H PRN for PAIN Prescribed by: NOBLE FOSTER on 07/12/16 1454 Hydrocodone Bit/Acetaminophen (Lortab 5 Mg Tablet) 1 Tab Tab, 1 EACH PO Q4-6HR PRN for PAIN-MODERATE Prescribed by: NOAH BENTLEY on 12/21/19 0303 Lorazepam (Ativan) 0.5 Mg Tablet, 0.5 MG PO BID PRN for ANXIETY Prescribed by: LISA HENRY on 08/04/20 1406 Olanzapine (Zyprexa) 5 Mg Tablet, 5 MG PO HS PRN for INSOMNIA Prescribed by: NOAH BENTLEY on 05/31/20 1413 Ondansetron (Ondansetron Odt) 4 Mg Tab.rapdis, 4 MG PO Q6H PRN for NAUSEA/VOMITING Prescribed by: NOAH BENTLEY on 12/21/19 0303 Propranolol HCl (Propranolol HCl) 10 Mg Tablet, (Reported) Entered as Reported by: AMBER QUEEN on 07/12/16 1336 Review of Systems Constitutional: chills, malaise, weakness EENTM: no symptoms reported Respiratory: no symptoms reported Cardiovascular: see HPI Gastrointestinal: no symptoms reported Genitourinary: see HPI LMP: Sep 14, 2021 Control/STD Prophylaxis: Other (tubal ) Musculoskeletal: see HPI Skin: no symptoms reported Psychiatric/Neurological: Anxiety Past Xgdzuet-Wlwogb-Uzxchg Hx Immunizations Up To Date Tetanus Booster (TDap): Unknown Seasonal Allergies Seasonal Allergies: No Past Medical History Surgeries: Yes Section, Tubal Ligation Respiratory: No Cardiac: Yes Hypertension, Palpitations Neurological: No 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 oz. 57.754599uq; 24.00 BMI Method:Stated General Appearance: No Apparent Distress, WD/WN HEENT: PERRL/EOMI, Normal ENT Inspection, Pharynx Normal, Moist Mucous Membranes Neck: Full Range of Motion, Normal Inspection, Supple Cardiovascular: Regular Rate, Rhythm, No Edema, No Murmur, Normal Peripheral Pulses Respiratory: Chest Non Tender, Lungs Clear, Normal Breath Sounds, No Accessory Muscle Use, No Respiratory Distress Gastrointestinal: Normal Bowel Sounds, No Organomegaly, No Pulsatile Mass, Non Tender, Soft Back: Normal Inspection, CVA Tenderness (L), CVA Tenderness (R) Extremity: Normal Inspection, Normal Range of Motion Neurologic/Psychiatric: Alert, Oriented x3, No Motor/Sensory Deficits, Normal Mood/Affect, disability services coordinator II-XII Norm as Tested Skin: Normal Color, Warm/Dry Progress/Results/Core Measures Results/Orders Lab Results Laboratory Tests Test 10/05/21 12:47 10/05/21 12:50 Range/Units White Blood Count 10.6 4.3-11.0 10^3/uL Red Blood Count 4.33 3.80-5.11 10^6/uL Hemoglobin 14.2 11.5-16.0 g/dL Hematocrit 41 35-52 % Mean Corpuscular Volume 94 80-99 fL Mean Corpuscular Hemoglobin 33 25-34 pg Mean Corpuscular Hemoglobin Concent 35 32-36 g/dL Red Cell Distribution Width 12.7 10.0-14.5 % Platelet Count 394 130-400 10^3/uL Mean Platelet Volume 9.8 9.0-12.2 fL Immature Granulocyte % (Auto) 0 % Neutrophils (%) (Auto) 67 42-75 % Lymphocytes (%) (Auto) 22 12-44 % Monocytes (%) (Auto) 9 0-12 % Eosinophils (%) (Auto) 1 0-10 % Basophils (%) (Auto) 1 0-10 % Neutrophils # (Auto) 7.2 1.8-7.8 10^3/uL Lymphocytes # (Auto) 2.4 1.0-4.0 10^3/uL Monocytes # (Auto) 0.9 0.0-1.0 10^3/uL Eosinophils # (Auto) 0.1 0.0-0.3 10^3/uL Basophils # (Auto) 0.1 0.0-0.1 10^3/uL Immature Granulocyte # (Auto) 0.0 0.0-0.1 10^3/uL D-Dimer < 0.27 0.00-0.49 UG/ML Sodium Level 137 135-145 MMOL/L Potassium Level 4.4 3.6-5.0 MMOL/L Chloride Level 106 98-107 MMOL/L Carbon Dioxide Level 15 L 21-32 MMOL/L Anion Gap 16 H 5-14 MMOL/L Blood Urea Nitrogen 13 7-18 MG/DL Creatinine 0.82 0.60-1.30 MG/DL Estimat Glomerular Filtration Rate 80 BUN/Creatinine Ratio 16 Glucose Level 109 H 70-105 MG/DL Calcium Level 10.4 H 8.5-10.1 MG/DL Corrected Calcium 8.5-10.1 MG/DL Total Bilirubin 0.5 0.1-1.0 MG/DL Aspartate Amino Transf (AST/SGOT) 38 H 5-34 U/L Alanine Aminotransferase (ALT/SGPT) 33 0-55 U/L Alkaline Phosphatase 70 40-136 U/L Troponin I < 0.028 <0.028 NG/ML C-Reactive Protein High Sensitivity 0.30 0.00-0.50 MG/DL Total Protein 8.5 H 6.4-8.2 GM/DL Albumin 5.2 H 3.2-4.5 GM/DL Urine Color YELLOW Urine Clarity CLEAR Urine pH 6.0 5-9 Urine Specific [place] >=1.030 1.016-1.022 Urine Protein TRACE H NEGATIVE Urine Glucose (UA) NEGATIVE NEGATIVE Urine Ketones TRACE H NEGATIVE Urine Nitrite NEGATIVE NEGATIVE Urine Bilirubin NEGATIVE NEGATIVE Urine Urobilinogen 0.2 < = 1.0 MG/DL Urine Leukocyte Esterase NEGATIVE NEGATIVE Urine RBC (Auto) 2+ H NEGATIVE Urine RBC 0-2 /HPF Urine WBC NONE /HPF Urine Squamous Epithelial Cells 2-5 /HPF Urine Crystals NONE /LPF Urine Bacteria TRACE /HPF Urine Casts NONE /LPF Urine Mucus SMALL H /LPF Urine Culture Indicated NO Influenza Type A (RT-PCR) Not Detected Not Detecte Influenza Type A Antigen NEGATIVE Influenza Type B Antigen NEGATIVE Influenza Type B (RT-PCR) Not Detected Not Detecte SARS-CoV-2 RNA (RT-PCR) Not Detected Not Detecte My Orders Orders - BARBY,STORMY D CAR AND YARD SUPERVISOR Cbc With Automated Diff (10/05/21 12:46) Comprehensive Metabolic Panel (10/05/21 12:46) Ua Culture If Indicated (10/05/21 12:46) Fibrin Degradation Products (10/05/21 12:46) Hs C Reactive Protein (10/05/21 12:46) Ekg Tracing (10/05/21 12:46) Ct Abdomen/Pelvis Wo (10/05/21 12:46) Covid 19 Inhouse Test (10/05/21 12:46) Influenza A & B Antigens (10/05/21 12:46) Ketorolac Injection (Toradol Injection) (10/05/21 13:00) Fentanyl Inj (Sublimaze Injection) (10/05/21 13:00) Ns Iv 1000 Ml (Sodium Chloride 0.9%) (10/05/21 13:00) Troponin I (10/05/21 12:53) Influenza A And B By Pcr (10/05/21 12:50) Fentanyl Inj (Sublimaze Injection) (10/05/21 13:45) Medications Given in ED Current Medications Medications Dose Ordered Sig/Deejay Route Start Time Stop Time Status Last Admin Dose Admin Fentanyl Citrate 25 mcg ONCE ONCE IVP 10/05/21 13:00 10/05/21 13:01 DC 10/05/21 13:02 25 MCG Fentanyl Citrate 25 mcg ONCE ONCE IVP 10/05/21 13:45 10/05/21 13:46 DC 10/05/21 13:41 25 MCG Ketorolac Tromethamine 15 mg ONCE ONCE IVP 10/05/21 13:00 10/05/21 13:01 DC 10/05/21 13:02 15 MG Sodium Chloride 1,000 ml @ 999 mls/hr Q1H ONCE IV 10/05/21 13:00 10/05/21 14:00 DC 10/05/21 13:02 999 MLS/HR Vital Signs/I&O 10/05/21 12:30 Temp 37.3 Pulse 104 Resp 18 B/P (MAP) 138/67 (90) Pulse Ox 98 Progress Progress Note : Progress Note Patient examined and she is in no acute distress. Does appear to be little anxious at this time. She has no temperature, she is little tachycardic at 117, blood pressure stable. Will initiate basic work-up along with cardiac marker, D-dimer and EKG. Also will obtain a CT abdomen pelvis without contrast as she does have history of renal stones. Orders placed for Toradol 15mg IV, Fentanyl 25mcg IV, and NS bolus. Will monitor. Labs and imaging reviewed. Labs are unremarkable no elevation of white count no elevation in CRP. Her influenza, Covid swabs are negative. She was given the liter of fluids and pain medication and states she feels much improved. This could represent viral infection discussed with her continuing to hydrate, taking tylenol or ibuprofen as needed, and she can always follow-up with her doctor or return to emergency department if her symptoms persist or worsen. She is agreeable with this plan. Also notes that she is due to start her menstrual cycle any day which could account for the microscopic blood in on her UA. Initial ECG Impression Date: Oct 05, 2021 Initial ECG Impression Time: 12:56 Initial ECG Rate: 87 Initial ECG Rhythm: Normal Sinus Initial ECG Intervals: Normal Initial ECG Impression: Normal Initial ECG Comparisson: No Previous ECG Available Diagnostic Imaging Diagonstic Imaging: CT Plain Films/CT/US/NM/MRI: abdomen, pelvis Comments [facility]. [place], [place] NAME: SHA [facility] REC#: [id number] PT STATUS: REG ER : 1990 PHYSICIAN: FRANCO DIOR CAR AND YARD SUPERVISOR ADMIT DATE: 10/05/21/ER Signed Date of Exam:10/05/21 CT ABDOMEN/PELVIS WO CT ABDOMEN/PELVIS WO TECHNIQUE: Unenhanced CT imaging of the abdomen and pelvis was performed. 2-D reformats are created and submitted for interpretation. Automatic exposure controls were utilized to optimize patient dose. INDICATION: Left flank pain and blood in urine COMPARISON: None available. FINDINGS: Evaluation of the abdominal viscera is mildly limited without contrast. Lower chest: The lung bases are clear. No pericardial or pleural effusion. Peritoneum: No free intraperitoneal air or fluid. Liver and biliary system: Unenhanced liver is normal. The gallbladder is normal. No biliary duct dilation. Spleen and Pancreas: Spleen is normal. Unenhanced pancreas is grossly normal. Adrenals: Normal. tract: No renal or ureteral calculi. No obstructive uropathy. Uterus and ovaries are normal in appearance. Urinary bladder is partially filled without wall thickening. There is a 1.4 x 1.4 cm cystic structure along the left labia which may represent a Bartholin's ganglion cyst. GI tract: Stomach is partially filled with fluid and there is no wall thickening. No bowel obstruction. No pericolonic inflammatory changes. Normal appendix. Vasculature and Lymph nodes: Normal caliber aorta. No abdominal or pelvic lymphadenopathy. Musculoskeletal: No concerning osseous lesion. IMPRESSION: 1. No urinary tract calculi or obstructive uropathy. 2. Probable Bartholin's duct cyst along the left aspect of the posterior labia. Dictated by: Dictated on workstation # [id number] Dict: 10/05/21 1349 Trans: 10/05/21 1353 [facility] [id number] Interpreted by: HYACINTH AMIN MD Electronically signed by: HYACINTH AMIN MD 10/05/21 [id number] Reviewed: Reviewed by Me Departure Impression Primary Impression: Chills (without fever) Additional Impression: Dehydration Disposition: 01 HOME, SELF-CARE Condition: Improved Departure-Patient Inst. Decision time for Depature: 14:32 Referrals: [facility] (PCP) Primary Care Physician ELPIDIO GUILLORY APRN (Family) Primary Care Physician Patient Instructions: Dehydration, Adult ED Add. Discharge Instructions: Plan: 1. Follow up with your primary care provider next week. Drink plenty of fluids. 2. Incidental finding of Probable Bartholin's duct cyst along the left aspect of the posterior labia. Follow up with your BUCKLE STRAP PUNCHER. Call to schedule appointment. 3. May take Tylenol or Ibuprofen as needed for pain/chills. Your labs did not indicate any signs of infection or inflammation. If your symptoms persist or wor sen please follow up with your primary care provider or return to the emergency department. 4. Return for any new, concerning, or worsening symptoms. Copy Copies To 1: [facility]/FRANCO VALLADARES APRN Oct 05, 2021 12:45
[2021-10-05] MEDS ORDERED: NS IV 1000 ML 1,000 ML IV ONE (13:00)
[2021-10-05] MEDS ORDERED: fentaNYL INJ 100 MCG/2 ML AMP IVP ONE ×2 (13:00→13:45)
[2021-10-05] MEDS ORDERED: KETOROLAC 30 MG/ML VIAL IVP ONE (13:00)
[2021-10-05 13:05] LABS: BASOPHILS # (AUTO) 0.1 10^3/uL (0.0-0.1); BASOPHILS % (AUTO) 1 % (0-10); EOSINOPHILS # (AUTO) 0.1 10^3/uL (0.0-0.3); EOSINOPHILS % (AUTO) 1 % (0-10); HEMATOCRIT 41 % (35-52); HEMOGLOBIN 14.2 g/dL (11.5-16.0); LYMPHOCYTES # (AUTO) 2.4 10^3/uL (1.0-4.0); LYMPHOCYTES % (AUTO) 22 % (12-44); MEAN CORPUSCULAR HEMOGLOBIN 33 pg (25-34); MEAN CORPUSCULAR HGB CONC 35 g/dL (32-36); MEAN CORPUSCULAR VOLUME 94 fL (80-99); MEAN PLATELET VOLUME 9.8 fL (9.0-12.2); MONOCYTES # (AUTO) 0.9 10^3/uL (0.0-1.0); MONOCYTES % (AUTO) 9 % (0-12); NEUTROPHILS # (AUTO) 7.2 10^3/uL (1.8-7.8); NEUTROPHILS % (AUTO) 67 % (42-75); PLATELET COUNT 394 10^3/uL (130-400); WHITE BLOOD COUNT 10.6 10^3/uL (4.3-11.0)
[2021-10-05 13:07] LABS: BILIRUBIN,URINE NEGATIVE (NEGATIVE); CLARITY,URINE CLEAR; COLOR,URINE YELLOW; GLUCOSE, URINE (UA) NEGATIVE (NEGATIVE); KETONES,URINE TRACE (NEGATIVE); LEUKOCYTE ESTERASE ,URINE NEGATIVE (NEGATIVE); NITRITE,URINE NEGATIVE (NEGATIVE); PROTEIN,URINE TRACE (NEGATIVE)
[2021-10-05 13:19] LABS: ALBUMIN 5.2 GM/DL (3.2-4.5); CHLORIDE 106 MMOL/L (98-107); POTASSIUM 4.4 MMOL/L (3.6-5.0); SODIUM 137 MMOL/L (135-145)
[2021-10-05 13:20] LABS: CALCIUM 10.4 MG/DL (8.5-10.1)
[2021-10-05 13:21] LABS: GLUCOSE 109 MG/DL (70-105)
[2021-10-05 13:22] LABS: TOTAL PROTEIN 8.5 GM/DL (6.4-8.2)
[2021-10-05 13:23] LABS: BILIRUBIN,TOTAL 0.5 MG/DL (0.1-1.0); CARBON DIOXIDE 15 MMOL/L (21-32)
[2021-10-05 13:24] LABS: BACTERIA,URINE TRACE /HPF; RBC,URINE 0-2 /HPF
[2021-10-05 13:25] LABS: ALKALINE PHOSPHATASE 70 U/L (40-136); CREATININE SERUM 0.82 MG/DL (0.60-1.30); GFR ESTIMATED 80
[2021-10-05 13:26] LABS: BUN/CREATININE RATIO 16
[2021-10-05 13:28] LABS: ALANINE AMINOTRANSFERASE 33 U/L (0-55)
--- NOTE | 2021-10-05 13:54 | Diagnostic Imaging Report ---
CT ABDOMEN/PELVIS WO TECHNIQUE: Unenhanced CT imaging of the abdomen and pelvis was performed. 2-D reformats are created and submitted for interpretation. Automatic exposure controls were utilized to optimize patient dose. INDICATION: Left flank pain and blood in urine COMPARISON: None available. FINDINGS: Evaluation of the abdominal viscera is mildly limited without contrast. Lower chest: The lung bases are clear. No pericardial or pleural effusion. Peritoneum: No free intraperitoneal air or fluid. Liver and biliary system: Unenhanced liver is normal. The gallbladder is normal. No biliary duct dilation. Spleen and Pancreas: Spleen is normal. Unenhanced pancreas is grossly normal. Adrenals: Normal. tract: No renal or ureteral calculi. No obstructive uropathy. Uterus and ovaries are normal in appearance. Urinary bladder is partially filled without wall thickening. There is a 1.4 x 1.4 cm cystic structure along the left labia which may represent a Bartholin's ganglion cyst. GI tract: Stomach is partially filled with fluid and there is no wall thickening. No bowel obstruction. No pericolonic inflammatory changes. Normal appendix. Vasculature and Lymph nodes: Normal caliber aorta. No abdominal or pelvic lymphadenopathy. Musculoskeletal: No concerning osseous lesion. IMPRESSION: 1. No urinary tract calculi or obstructive uropathy. 2. Probable Bartholin's duct cyst along the left aspect of the posterior labia. Dictated by: Dictated on workstation # [id number]
== END 2021-10-05 15:09 | disposition home or self-care (01) ==
LOC: EDUNIT# 12:29 → ER 12:32
DX: R68.83 Chills (without fever) (principal); E86.0 Dehydration; I10 Essential (primary) hypertension; F41.9 Anxiety disorder, unspecified; F32.9 Major depressive disorder, single episode, unspecified; Z20.822 Contact with and (suspected) exposure to COVID-19; Z79.899 Other long term (current) drug therapy
CPT/HCPCS: 36415; 74176; 80053; 81000; 84484; 85025; 85379; 86141; 87636; 93005

== ENCOUNTER 2021-11-08 12:57 | Emergency (ER) | payer MEDICAID ==
[~2021-11-08] VITALS: Ht 162 cm; Wt 68.0 kg
[2021-11-08 14:35] VITALS: BP 125/73
[2021-11-08] MEDS ORDERED: NAPR-1071 PO (14:56)
[2021-11-08] MEDS ORDERED: METH-732 PO (14:56)
--- NOTE | 2021-11-08 14:57 | ED Back Pain ---
General Chief Complaint: Back Problems Stated Complaint: BACK/NECK PAIN Nursing Triage Note: PT CO OF BACK PAIN FROM MOVING A SOFA 3.5 DAYS AGO AND FELT A TIGHT WARM SENSATION PAIN IN LOWER BACK AND IS MOVING UP TO SHOULDERS AND NECK Source of Information: Patient Exam Limitations: No Limitations (LISA HENRY APRN) History of Present Illness Date Seen by Provider: Nov 08, 2021 Time Seen by Provider: 14:53 Initial Comments To ER with reports of pain to the medial aspect of the left scapula that began suddenly while moving a sofa the other day. Location: C-Spine, Paraspinous Muscles Timing/Duration: 2-3 Days Severity: Moderate Associated Symptoms: denies symptoms (LISA HENRY APRN) Allergies and Home Medications Allergies Coded Allergies: latex (Verified Allergy, Unknown, 11/18/14) Patient Home Medication List Home Medication List Reviewed: Yes (LISA HENRY APRN) Cefdinir (Cefdinir) 300 Mg Capsule, 300 MG PO BID Prescribed by: NOAH BENTLEY on 12/21/19 0303 Clonazepam (Klonopin) 0.5 Mg Tablet, 0.5 MG PO BID Prescribed by: HUGO CUELLO on 09/05/15 2303 Clonazepam (Clonazepam) 0.5 Mg Tablet, 0.5 MG PO Q8H PRN for ANXIETY Prescribed by: NOAH BENTLEY on 09/26/20 1102 Diazepam (Valium) 5 Mg Tablet, 5 MG PO BID PRN for AIR HUNGER Prescribed by: LISA HENRY on 02/09/21 1656 Escitalopram Oxalate (Escitalopram Oxalate) 10 Mg Tablet, (Reported) Entered as Reported by: AMBER QUEEN on 07/12/16 1336 Escitalopram Oxalate (Lexapro) 10 Mg Tablet, 10 MG PO DAILY Prescribed by: LISA HENRY on 08/04/20 1406 Hydrocodone Bit/Acetaminophen (Lortab 5 Mg Tablet) 1 Each Tablet, 1 EACH PO Q4H PRN for PAIN Prescribed by: NOBLE FOSTER on 07/12/16 1454 Hydrocodone Bit/Acetaminophen (Lortab 5 Mg Tablet) 1 Tab Tab, 1 EACH PO Q4-6HR PRN for PAIN-MODERATE Prescribed by: NOAH BENTLEY on 12/21/19 0303 Lorazepam (Ativan) 0.5 Mg Tablet, 0.5 MG PO BID PRN for ANXIETY Prescribed by: LISA HENRY on 08/04/20 1406 Methocarbamol (Methocarbamol) 750 Mg Tablet, 750 MG PO Q6-8HR Prescribed by: LISA HENRY on 11/08/21 1456 Naproxen (Naprosyn) 500 Mg Tablet, 500 MG PO BID PRN for PAIN-MODERATE (5-7) Prescribed by: LISA HENRY on 11/08/21 1456 Olanzapine (Zyprexa) 5 Mg Tablet, 5 MG PO HS PRN for INSOMNIA Prescribed by: NOAH BENTLEY on 05/31/20 1413 Ondansetron (Ondansetron Odt) 4 Mg Tab.rapdis, 4 MG PO Q6H PRN for NAUSEA/VOMITING Prescribed by: NOAH BENTLEY on 12/21/19 0303 Propranolol HCl (Propranolol HCl) 10 Mg Tablet, (Reported) Entered as Reported by: AMBER QUEEN on 07/12/16 1336 Review of Systems Constitutional: see HPI; No chills, No fever EENTM: see HPI Respiratory: no symptoms reported Cardiovascular: no symptoms reported Genitourinary: no symptoms reported Musculoskeletal: no symptoms reported Skin: no symptoms reported Psychiatric/Neurological: No Symptoms Reported (LISA HENRY APRN) Past Mpprwxs-Mqruku-Mvaztp Hx Immunizations Up To Date Tetanus Booster (TDap): Unknown (LISA HENRY APRN) Seasonal Allergies Seasonal Allergies: No (LISA HENRY APRN) Past Medical History Surgeries: Yes Section, Tubal Ligation Respiratory: No Cardiac: Yes Hypertension, Palpitations Neurological: No 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 oz. 57.007400hn; 25.00 BMI Method:Stated General Appearance: No Apparent Distress, WD/WN Neck: Full Range of Motion, Normal Inspection Cardiovascular: Regular Rate, Rhythm, Normal Peripheral Pulses Respiratory: Normal Breath Sounds, No Accessory Muscle Use, No Respiratory Distress Gastrointestinal: Normal Bowel Sounds, Non Tender, Soft Extremity: Normal Capillary Refill, Normal Inspection, Other (Tender to palpation with muscle spasm between the medial left scapular border and spinous processes.) Neurologic/Psychiatric: Alert, Oriented x3 Skin: Normal Color, Warm/Dry (LISA HENRY APRN) Progress/Results/Core Measures Results/Orders Vital Signs/I&O 11/08/21 14:35 Temp 36.8 Pulse 81 Resp 18 B/P (MAP) 125/73 (90) Pulse Ox 100 (NORMA COKER DO) Blood Pressure Mean: 90 Departure Impression Primary Impression: Cervical myofascial strain Disposition: 01 HOME, SELF-CARE Condition: Stable Departure-Patient Inst. Decision time for Depature: 14:55 (LISA HENRY APRN) Referrals: [facility] [place] Primary Care Physician ELPIDIO GUILLORY APRN (Family) Primary Care Physician Patient Instructions: Muscle Strain ED Add. Discharge Instructions: Warm compresses to this area. Medication as directed. All discharge instructions reviewed with patient and/or family. Voiced understanding. Scripts Naproxen (Naprosyn) 500 Mg Tablet 500 MG PO BID PRN for PAIN-MODERATE (5-7), #30 TAB 0 Refills Prov: LISA HENRY APRN 11/08/21 Methocarbamol (Methocarbamol) 750 Mg Tablet 750 MG PO Q6-8HR for Back Pain, #14 TAB Prov: LISA HENRY APRN 11/08/21 Work/School Note: Work Release Form Date Seen in the Emergency Department: Nov 08, 2021 Return to Work: Nov 10, 2021 ATTENDING PHYSICIAN NOTE: I WAS PHYSICALLY PRESENT ER PHYSICIAN WHEN THIS PATIENT WAS IN ER, BUT I WAS NOT INVOLVED IN ANY DECISION MAKING OR ANY CARE OF THIS PATIENT. (NORMA COKER DO) LISA HENRY APRN Nov 08, 2021 14:56 NORMA COKER DO Nov 11, 2021 04:48
[2021-11-08] MEDS ORDERED: ORPHENADRINE 60 MG/2 ML (NORFLEX) AMP (ED ONLY) IM ONE (15:00)
[2021-11-08] MEDS ORDERED: KETOROLAC 60 MG/2 ML VIAL IM ONE (15:00)
== END 2021-11-08 15:08 | disposition home or self-care (01) ==
LOC: EDUNIT# 12:57 → ER 12:58
DX: S16.1XXA Strain of muscle, fascia and tendon at neck level, initial encounter (principal); I10 Essential (primary) hypertension; F41.9 Anxiety disorder, unspecified; F32.9 Major depressive disorder, single episode, unspecified; Z88.8 Allergy status to other drugs, medicaments and biological substances; Z79.899 Other long term (current) drug therapy; X58.XXXA Exposure to other specified factors, initial encounter
CPT/HCPCS: 99284

== ENCOUNTER 2022-04-26 19:27 | Emergency (ER) | payer MEDICAID ==
[~2022-04-26] VITALS: Ht 160 cm; Wt 68.0 kg
[~2022-04-26 19:27] MED LIST changes: +METH-732 PO; +NAPR-1071 PO
[2022-04-26] MEDS ORDERED: ALPRAZolam 0.5 MG (XANAX) TAB PO STA (19:53)
[2022-04-26] MEDS ORDERED: LISI10TA25 PO (19:59)
--- NOTE | 2022-04-26 19:59 | ED Cardiac General ---
History of Present Illness General Chief Complaint: Cardiac/General Problems Stated Complaint: ELEV BP AND HR Source: patient Exam Limitations: no limitations History of Present Illness Date Seen by Provider: Apr 26, 2022 Time Seen by Provider: 19:29 Initial Comments 31-year-old female with past medical history of hypertension and anxiety coming in due to an elevated blood pressure. She says she ran out of her blood pressure medicine which was lisinopril 10 mg roughly 4 days ago. Her primary care physician in [place] has moved, and she needs to reestablish care to get a refill. She was feeling anxious tonight, took her blood pressure, was 150/105. She says this has made her feel much more anxious and so she presented to the ER. She denies any prior history of DVT or PE, no leg swelling or pain, no hemoptysis, does not take any hormones, no recent long travel. Denies any chest pain, shortness of breath, abdominal pain, nausea, vomiting, diarrhea, weakness, numbness, or any other concerns. LMP was roughly 2 weeks ago Allergies and Home Medications Allergies Coded Allergies: latex (Verified Allergy, Unknown, 11/18/14) Patient Home Medication List Home Medication List Reviewed: Yes Cefdinir (Cefdinir) 300 Mg Capsule, 300 MG PO BID Prescribed by: NOAH BENTLEY on 12/21/19 0303 Clonazepam (Klonopin) 0.5 Mg Tablet, 0.5 MG PO BID Prescribed by: HUGO CUELLO on 09/05/15 2303 Clonazepam (Clonazepam) 0.5 Mg Tablet, 0.5 MG PO Q8H PRN for ANXIETY Prescribed by: NOAH BENTLEY on 09/26/20 1102 Diazepam (Valium) 5 Mg Tablet, 5 MG PO BID PRN for AIR HUNGER Prescribed by: LISA HENRY on 02/09/21 1656 Escitalopram Oxalate (Escitalopram Oxalate) 10 Mg Tablet, (Reported) Entered as Reported by: AMBER QUEEN on 07/12/16 1336 Escitalopram Oxalate (Lexapro) 10 Mg Tablet, 10 MG PO DAILY Prescribed by: LISA HENRY on 08/04/20 1406 Hydrocodone Bit/Acetaminophen (Lortab 5 Mg Tablet) 1 Each Tablet, 1 EACH PO Q4H PRN for PAIN Prescribed by: NOBLE FOSTER on 07/12/16 1454 Hydrocodone Bit/Acetaminophen (Lortab 5 Mg Tablet) 1 Tab Tab, 1 EACH PO Q4-6HR PRN for PAIN-MODERATE Prescribed by: NOAH BENTLEY on 12/21/19 0303 Lisinopril (Lisinopril) 10 Mg Tablet, 10 MG PO DAILY Prescribed by: SUNI BLEDSOE on 04/26/221958 Lorazepam (Ativan) 0.5 Mg Tablet, 0.5 MG PO BID PRN for ANXIETY Prescribed by: LISA HENRY on 08/04/20 1406 Methocarbamol (Methocarbamol) 750 Mg Tablet, 750 MG PO Q6-8HR Prescribed by: LISA HENRY on 11/08/21 1456 Naproxen (Naprosyn) 500 Mg Tablet, 500 MG PO BID PRN for PAIN-MODERATE (5-7) Prescribed by: LISA HENRY on 11/08/21 145 Olanzapine (Zyprexa) 5 Mg Tablet, 5 MG PO HS PRN for INSOMNIA Prescribed by: NOAH BENTLEY on 05/31/20 1413 Ondansetron (Ondansetron Odt) 4 Mg Tab.rapdis, 4 MG PO Q6H PRN for NAUSEA/VOMITING Prescribed by: NOAH BENTLEY on 12/21/19 030 Propranolol HCl (Propranolol HCl) 10 Mg Tablet, (Reported) Entered as Reported by: AMBER QUEEN on 07/12/16 1336 Review of Systems Review of Systems Constitutional: No fever EENTM: No Blurred Vision Respiratory: No Symptoms Reported Cardiovascular: No Symptoms Reported Gastrointestinal: No Symptoms Reported Genitourinary: No Symptoms Reported Musculoskeletal: no symptoms reported Skin: no symptoms reported Psychiatric/Neurological: Anxiety Endocrine: No Symptoms Reported Hematologic/Lymphatic: No Symptoms Reported All Other Systems Reviewed Negative Unless Noted: Yes Past Cgmedcx-Wywvcz-Mnhxrh Hx Patient Social History Tobacco Use?: Yes Tobacco type used: Cigarettes Substance use?: Yes Substance type: Marijuana Alcohol Use?: Yes Alcohol Frequency: Once in a while Immunizations Up To Date Tetanus Booster (TDap): Unknown Seasonal Allergies Seasonal Allergies: No Past Medical History Surgeries: Yes Section, Tubal Ligation Respiratory: No Cardiac: Yes Hypertension, Palpitations Neurological: No 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 oz. 57.673351rk; 25.00 BMI Method:Stated General Appearance: No Apparent Distress, Anxious HEENT: PERRL/EOMI, Normal ENT Inspection, Pharynx Normal Neck: Full Range of Motion, Normal Inspection, Non Tender, Supple Respiratory: Chest Non Tender, Lungs Clear, Normal Breath Sounds, No Accessory Muscle Use, No Respiratory Distress Cardiovascular: Regular Rate, Rhythm, No Edema, Normal Peripheral Pulses Gastrointestinal: Normal Bowel Sounds, Non Tender, Soft; No Guarding Extremity: Normal Capillary Refill, Normal Inspection, Normal Range of Motion, Non Tender, No Calf Tenderness, No Pedal Edema Neurologic/Psychiatric: Alert, No Motor/Sensory Deficits, Normal Mood/Affect Skin: Normal Color, Warm/Dry Lymphatic: No Adenopathy Progress/Results/Core Measures Results/Orders My Orders Orders - SUNI BLEDSOE MD Lisinopril Tablet (Zestril Tablet) (04/26/22 20:00) Alprazolam Tablet (Xanax Tablet) (04/26/22 19:53) Ekg Tracing (04/26/22 19:54) Vital Signs/I&O 04/26/22 19:48 Temp 36.7 Pulse 106 Resp 20 B/P (MAP) 149/89 (109) Pulse Ox 100 O2 Delivery Room Air Progress Progress Note : Progress Note 31-year-old female with above history coming in due to elevated blood pressure in the setting of not taking her medicines. ABCs were intact and vitals were stable on presentation although her blood pressure is mildly elevated around 140s over 80s. I gave her her home dose of lisinopril. She says she does have really bad anxiety, and currently is not on medicines for it. Gave her alprazolam 1 time. EKG without acute ischemic changes. She is low risk for PE per [place] criteria and I think it is unlikely. I believe she is stable for discharge with outpatient follow-up. She was sent home with strict return precautions Initial ECG Impression Date: Apr 26, 2022 Initial ECG Impression Time: 19:59 Initial ECG Rate: 84 Initial ECG Rhythm: Normal Sinus Comment Narrow QRS, normal axis, no significant ST changes or T wave abnormalities Departure Impression Primary Impression: Hypertension Qualified Codes: I10 - Essential (primary) hypertension Disposition: 01 HOME, SELF-CARE Condition: Stable Departure-Patient Inst. Decision time for Depature: 19:58 Referrals: NO,LOCAL PHYSICIAN (PCP/Family) Primary Care Physician Patient Instructions: High Blood Pressure (DC) Add. Discharge Instructions: I sent a refill of her blood pressure medicines to the apothecary in [place]. I recommend following up with [facility] or whoever you can get in with because the refill is only for 1 month. If you begin having severe, crushing chest pain, severe shortness of breath, or any other concerns then please come back to the ER Scripts Lisinopril (Lisinopril) 10 Mg Tablet 10 MG PO DAILY for 30 Days, #30 TAB Prov: SUNI BLEDSOE MD 04/26/22 Work/School Note: Work Release Form Date Seen in the Emergency Department: Apr 26, 2022 Return to Work: Apr 28, 2022 Restrictions: No Restrictions SUNI BLEDSOE MD Apr 26, 2022 19:59
[2022-04-26] MEDS ORDERED: lisINopril 10 MG (PRINIVIL) TABLET PO ONE (20:00)
[2022-04-26 20:31] VITALS: BP 114/54
[2022-04-27] MEDS ORDERED: HYDR25CA PO (22:06)
== END 2022-04-26 20:31 | disposition home or self-care (01) ==
LOC: EDUNIT# 19:27 → ER 19:29
DX: I10 Essential (primary) hypertension (principal); T46.4X6A Underdosing of angiotensin-converting-enzyme inhibitors, initial encounter; F17.210 Nicotine dependence, cigarettes, uncomplicated; Z91.14 Patient's other noncompliance with medication regimen
CPT/HCPCS: 93005

== ENCOUNTER 2022-04-27 20:24 | Emergency (ER) | payer MEDICAID ==
[~2022-04-27 20:24] MED LIST changes: +LISI10TA25 PO
[2022-04-27] MEDS ORDERED: LORazepam 0.5 MG (ATIVAN) TABLET PO STA (21:50)
--- NOTE | 2022-04-27 21:56 | ED Psychosocial ---
General Chief Complaint: Psych/Social Disorder Stated Complaint: BP HIGH Source: patient Exam Limitations: no limitations History of Present Illness Date Seen by Provider: Apr 27, 2022 Time Seen by Provider: 21:35 Initial Comments Patient to the ER by private conveyance with chief complaint that she had high blood pressure at home. Nursing reports a normal blood pressure here in the ER. She was here yesterday for similar complaints and had blood pressure med ications refilled. She took a second dose of her blood pressure medicine this morning and it did not help. She has a history of panic attacks and has been on Klonopin in the past but she did not like the way it made her feel. She has been on Seroquel in the past but she said it made her feel groggy. She has not been in counseling or seeing a psychiatrist in over 2 years. She does historically see Ms. Dunbar, for counseling. When they come on she says she feels very hot, panicky, chest pain and sweaty. Allergies and Home Medications Allergies Coded Allergies: latex (Verified Allergy, Unknown, 11/18/14) Patient Home Medication List Home Medication List Reviewed: Yes Cefdinir (Cefdinir) 300 Mg Capsule, 300 MG PO BID Prescribed by: NOAH BENTLEY on 12/21/19 0303 Clonazepam (Klonopin) 0.5 Mg Tablet, 0.5 MG PO BID Prescribed by: HUGO CUELLO on 09/05/15 2303 Clonazepam (Clonazepam) 0.5 Mg Tablet, 0.5 MG PO Q8H PRN for ANXIETY Prescribed by: NOAH BENTLEY on 09/26/20 1102 Diazepam (Valium) 5 Mg Tablet, 5 MG PO BID PRN for AIR HUNGER Prescribed by: LISA HENRY on 02/09/21 1656 Escitalopram Oxalate (Escitalopram Oxalate) 10 Mg Tablet, (Reported) Entered as Reported by: AMBER QUEEN on 07/12/16 1336 Escitalopram Oxalate (Lexapro) 10 Mg Tablet, 10 MG PO DAILY Prescribed by: LISA HENRY on 08/04/20 1406 Hydrocodone Bit/Acetaminophen (Lortab 5 Mg Tablet) 1 Each Tablet, 1 EACH PO Q4H PRN for PAIN Prescribed by: NOBLE FOSTER on 07/12/16 1454 Hydrocodone Bit/Acetaminophen (Lortab 5 Mg Tablet) 1 Tab Tab, 1 EACH PO Q4-6HR PRN for PAIN-MODERATE Prescribed by: NOAH BENTLEY on 12/21/19 0303 Lisinopril (Lisinopril) 10 Mg Tablet, 10 MG PO DAILY Prescribed by: SUNI BLEDSOE on 04/26/221958 Lorazepam (Ativan) 0.5 Mg Tablet, 0.5 MG PO BID PRN for ANXIETY Prescribed by: LISA HENRY on 08/04/20 1406 Methocarbamol (Methocarbamol) 750 Mg Tablet, 750 MG PO Q6-8HR Prescribed by: LISA HENRY on 11/08/21 1456 Naproxen (Naprosyn) 500 Mg Tablet, 500 MG PO BID PRN for PAIN-MODERATE (5-7) Prescribed by: LISA HENRY on 11/08/21 145 Olanzapine (Zyprexa) 5 Mg Tablet, 5 MG PO HS PRN for INSOMNIA Prescribed by: NOAH BENTLEY on 05/31/20 1413 Ondansetron (Ondansetron Odt) 4 Mg Tab.rapdis, 4 MG PO Q6H PRN for NAUSEA/VOMITING Prescribed by: NOAH BENTLEY on 12/21/19 030 Propranolol HCl (Propranolol HCl) 10 Mg Tablet, (Reported) Entered as Reported by: AMBER QUEEN on 07/12/16 1336 Review of Systems Constitutional: No chills, No diaphoresis EENTM: No ear discharge, No ear pain Respiratory: No cough, No short of breath Cardiovascular: No edema, No palpitations Gastrointestinal: No abdominal pain, No nausea, No vomiting Genitourinary: No discharge, No dysuria Musculoskeletal: No back pain, No joint pain All Other Systems Reviewed Negative Unless Noted: Yes Past Rmqjbqz-Biayrp-Klayqv Hx Patient Social History Tobacco Use?: No Use of E-Cig and/or Vaping dev: No Substance use?: No Immunizations Up To Date Tetanus Booster (TDap): Unknown Seasonal Allergies Seasonal Allergies: No Past Medical History Surgeries: Yes Section, Tubal Ligation Respiratory: No Cardiac: Yes Hypertension, Palpitations Neurological: No 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 oz. 57.152109tv; 26.00 BMI Method:Stated General Appearance: WD/WN, no apparent distress HEENT: PERRL/EOMI, pharynx normal Neck: full range of motion, supple, normal inspection Respiratory: lungs clear, normal breath sounds, no respiratory distress, no accessory muscle use Cardiovascular: normal peripheral pulses, regular rate, rhythm Peripheral Pulses: 2+ Radial Pulses (R), 2+ Radial Pulses (L) Gastrointestinal: normal bowel sounds, non tender, soft Extremities: non-tender, normal inspection, normal capillary refill Neurologic/Psychiatric: alert, oriented x 3, other (Highly anxious affect) Appearance/Memory: appropriate appearance, appropriate insight Skin: normal color, warm/dry Progress/Results/Core Measures Results/Orders My Orders Orders - NOAH BENTLEY Lorazepam Tablet (Ativan Tablet) (04/27/22 21:50) Progress Progress Note : Time: 21:54 Progress Note Ativan 1 mg p.o. for panic attack. Her friend drove her to the ER. Apparently there are some interpersonal family issues that been going on as well as her father back in September and this is probably triggering her repeat panic attacks in the past 3 days. We discussed sending her home with something similar and she would prefer not on benzos as they make her groggy. We will try Vistaril and encouraged to follow-up with her counselor. She is getting a new provider at the [facility] so we suggested they also have counselors she could follow-up with if she needs to. We talked about starting medications for mood and she is not ready to start a daily medicine just yet. Departure Impression Primary Impression: Panic attacks Additional Impression: Interpersonal relationship problem without mental disorder Disposition: HOME, SELF-CARE Condition: Stable Departure-Patient Inst. Decision time for Depature: 22:04 Referrals: NO,LOCAL PHYSICIAN (PCP/Family) Primary Care Physician Patient Instructions: Panic Disorder (DC) Add. Discharge Instructions: Call your counselor and make a follow-up appointment. Vistaril 1 tablet every 6 hours as needed for anxiety attacks. Review the handout on panic attacks. If you need help even after hours you can call the [facility] Save Line at [phone] for help managing symptoms or establishing with a counselor. All discharge instructions reviewed with patient and/or family. Voiced understanding. Scripts Hydroxyzine Pamoate (Vistaril) 25 Mg Capsule 25 MG PO Q6H PRN for ANXIETY, #20 CAP 0 Refills Prov: NOAH BENTLEY 04/27/22 NOAH BENTLEY Apr 27, 2022 21:56
[2022-04-27] MEDS ORDERED: HYDR25CA PO (22:06)
[2022-04-27 22:12] VITALS: BP 118/73
== END 2022-04-27 22:12 | disposition home or self-care (01) ==
LOC: EDUNIT# 20:24 → ER 20:27
DX: F41.0 Panic disorder [episodic paroxysmal anxiety] (principal); I10 Essential (primary) hypertension; Z63.4 Disappearance and death of family member; Z79.899 Other long term (current) drug therapy
CPT/HCPCS: 99283

== ENCOUNTER 2023-04-21 17:57 | Emergency (ER) | payer MEDICAID ==
[~2023-04-21] VITALS: Ht 165 cm; Wt 82.0 kg
[2023-04-21] MEDS ORDERED: TRANEXAMIC ACID 100 MG/ML 10 ML INJECTION IR ONE (19:30)
[2023-04-21] MEDS ORDERED: LIDOCAINE/EPI 2% 1:100,00 (XYLOCAINE) 20 ML VIAL INJ ONE (19:30)
[2023-04-21 19:33] LABS: BILIRUBIN,URINE NEGATIVE (NEGATIVE); CLARITY,URINE CLEAR; COLOR,URINE DARK YELLOW; GLUCOSE, URINE (UA) NEGATIVE (NEGATIVE); KETONES,URINE NEGATIVE (NEGATIVE); LEUKOCYTE ESTERASE ,URINE NEGATIVE (NEGATIVE); NITRITE,URINE POSITIVE (NEGATIVE); PH,URINE 6.5 (5-9); PROTEIN,URINE NEGATIVE (NEGATIVE)
[2023-04-21 19:41] LABS: BACTERIA,URINE MODERATE /HPF; RBC,URINE RARE /HPF; WBC,URINE 0-2 /HPF
[2023-04-21 19:42] LABS: AMORPHOUS SEDIMENT,UR MOD AMOR URATES /LPF
[2023-04-21] MEDS ORDERED: KETOROLAC 15 MG/ML VIAL IM ONE (20:15)
[2023-04-21] MEDS ORDERED: ORPHENADRINE 60 MG/2 ML (NORFLEX) AMP (ED ONLY) IM ONE (20:15)
--- NOTE | 2023-04-21 20:17 | ED GU-Female ---
General Chief Complaint: - Reproductive Stated Complaint: BACK PAIN/UTI SYMPTOMS Nursing Triage Note: PT AMB TO TRIAGE. PT CO OF R FLANK PAIN STATES IS BEING TREATED FOR UTI W MACROBID AND IS NOT GETTING ANY BETTER Source: patient Exam Limitations: no limitations History of Present Illness Date Seen by Provider: Apr 21, 2023 Time Seen by Provider: 19:24 Initial Comments 32-year-old female presents to the ER with complaints of right lower back pain. She states that she was seen at [facility] on April 17 and diagnosed with a UTI. She went to the clinic due to her lower back pain. She states she has been taking Macrobid and which have not provided relief of her back pain. She is also been taking naproxen which is also not provided relief. She reports pain with palpation of lower back and pain with movement. Denies fevers, dysuria, hematuria. Allergies and Home Medications Allergies Coded Allergies: latex (Verified Allergy, Unknown, 11/18/14) Patient Home Medication List Home Medication List Reviewed: Yes Cefdinir (Cefdinir) 300 Mg Capsule, 300 MG PO BID Prescribed by: NOAH BENTLEY on 12/21/19 0303 Clonazepam (Klonopin) 0.5 Mg Tablet, 0.5 MG PO BID Prescribed by: HUGO CUELLO on 09/05/15 2303 Clonazepam (Clonazepam) 0.5 Mg Tablet, 0.5 MG PO Q8H PRN for ANXIETY Prescribed by: NOAH BENTLEY on 09/26/20 1102 Cyclobenzaprine HCl (Cyclobenzaprine HCl) 10 Mg Tablet, 10 MG PO TID Prescribed by: Ginny Franco on 04/21/23 210 Diazepam (Valium) 5 Mg Tablet, 5 MG PO BID PRN for AIR HUNGER Prescribed by: LISA HENRY on 02/09/21 1656 Escitalopram Oxalate (Escitalopram Oxalate) 10 Mg Tablet, (Reported) Entered as Reported by: AMBER QUEEN on 07/12/16 1336 Escitalopram Oxalate (Lexapro) 10 Mg Tablet, 10 MG PO DAILY Prescribed by: LISA HENRY on 08/04/20 1406 Hydrocodone Bit/Acetaminophen (Lortab 5 Mg Tablet) 1 Each Tablet, 1 EACH PO Q4H PRN for PAIN Prescribed by: NOBLE FOSTER on 07/12/16 1454 Hydrocodone Bit/Acetaminophen (Lortab 5 Mg Tablet) 1 Tab Tab, 1 EACH PO Q4-6HR PRN for PAIN-MODERATE Prescribed by: NOAH BENTLEY on 12/21/19 0303 Hydroxyzine Pamoate (Vistaril) 25 Mg Capsule, 25 MG PO Q6H PRN for ANXIETY Prescribed by: NOAH BENTLEY on 04/27/222205 Lisinopril (Lisinopril) 10 Mg Tablet, 10 MG PO DAILY Prescribed by: SUNI BLEDSOE on 04/26/221958 Lorazepam (Ativan) 0.5 Mg Tablet, 0.5 MG PO BID PRN for ANXIETY Prescribed by: LISA HENRY on 08/04/20 140 Methocarbamol (Methocarbamol) 750 Mg Tablet, 750 MG PO Q6-8HR Prescribed by: LISA HENRY on 11/08/21 145 Naproxen (Naprosyn) 500 Mg Tablet, 500 MG PO BID PRN for PAIN-MODERATE (5-7) Prescribed by: LISA HENRY on 11/08/21 1456 Olanzapine (Zyprexa) 5 Mg Tablet, 5 MG PO HS PRN for INSOMNIA Prescribed by: NOAH BENTLEY on 05/31/20 1413 Ondansetron (Ondansetron Odt) 4 Mg Tab.rapdis, 4 MG PO Q6H PRN for NAUSEA/VOMITING Prescribed by: NOAH BENTLEY on 12/21/19 030 Propranolol HCl (Propranolol HCl) 10 Mg Tablet, (Reported) Entered as Reported by: AMBER QUEEN on 07/12/16 1336 Review of Systems Review of Systems Constitutional: see HPI Past Eojkfku-[id number]-Fmvdkh Hx Patient Social History Use of E-Cig and/or Vaping dev: Yes E-Cig or Vaping type used: Nicotine Use of E-Cig and/or Vaping Artie: Current Everyday User Substance type: Marijuana Substance frequency: Daily Alcohol Use?: No Pt feels they are or have been: No Immunizations Up To Date Tetanus Booster (TDap): Unknown Seasonal Allergies Seasonal Allergies: No Past Medical History Surgeries: Yes Section, Tubal Ligation Respiratory: No Cardiac: Yes Hypertension, Palpitations Neurological: No Last Menstrual Period: March 22, 2023 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 oz. [id number]; 30.00 BMI Method:Stated General Appearance: WD/WN, no apparent distress Neck: supple, normal inspection Cardiovascular: regular rate, rhythm Respiratory: lungs clear, normal breath sounds, no respiratory distress, no accessory muscle use Back: no vertebral tenderness, other (Muscle tenderness right lower) Extremities: normal range of motion, normal inspection Neurologic/Psychiatric: alert Skin: normal color, warm/dry Progress/Results/Core Measures Suspected Sepsis SIRS Temperature: Pulse: 88 Respiratory Rate: 18 Blood Pressure 131 /78 Mean: 95 Results/Orders Lab Results My Orders Medications Given in ED Vital Signs/I&O Capillary Refill : Less Than 3 Seconds Blood Pressure Mean: 95 Progress Note : Progress Note Patient seen and evaluated, resting comfortably in recliner, no acute distress. UA has resulted, positive for nitrites, 0-2 WBCs, 2-5 squamous epithelial cells, moderate bacteria. Macrobid appears to be helping her UTI. Urine negative. This pain is likely musculoskeletal. Toradol and Norflex ordered. 2052 Patient reports improved pain after medications. Will discharge with prescription for flexeril. Discharge instructions and return precautions provided. Departure Impression Primary Impression: Back pain Disposition: HOME, SELF-CARE Condition: Stable Departure-Patient Inst. Decision time for Depature: 20:56 Referrals: [facility] (PCP/Family) Primary Care Physician Patient Instructions: Low Back Pain (DC) Add. Discharge Instructions: Continue taking your antibiotic as prescribed. Take Flexeril as needed for muscle pain. May continue taking naproxen with food as needed for pain. You may take 1000 mg of Tylenol every 8 hours as needed for pain. Follow-up with your primary care provider. Return for severe pain, numbness or tingling in your groin or inner thighs, bowel or bladder incontinence, inability to walk, or any other new, concerning, or worsening symptoms. All discharge instructions reviewed with patient and/or family. Voiced understanding. Scripts Cyclobenzaprine HCl (Cyclobenzaprine HCl) 10 Mg Tablet 10 MG PO TID, #21 TAB 0 Refills Prov: GINNY FRANCO APRN 04/21/23 GINNY FRANCO APRN Apr 21, 2023 20:17
[2023-04-21] MEDS ORDERED: CYCL10TA25 PO (21:01)
[2023-04-21 21:02] VITALS: BP 121/69
== END 2023-04-21 21:03 | disposition home or self-care (01) ==
LOC: EDUNIT# 17:57 → ER 18:00
DX: M54.50 Low back pain, unspecified (principal); N39.0 Urinary tract infection, site not specified; F17.290 Nicotine dependence, other tobacco product, uncomplicated; Z91.040 Latex allergy status
CPT/HCPCS: 81000; 84703; 87088; 99284

== ENCOUNTER → 2023-05-11 | Outpatient (CLI) | payer MEDICAID ==
[~2023-05-11] MED LIST changes: +CYCL10TA25 PO
[2023-05-11 12:30] LABS: BASOPHILS % (AUTO) 0 % (0-10); EOSINOPHILS # (AUTO) 0.1 10^3/uL (0.0-0.3); EOSINOPHILS % (AUTO) 1 % (0-10); HEMATOCRIT 40 % (35-52); HEMOGLOBIN 13.2 g/dL (11.5-16.0); LYMPHOCYTES # (AUTO) 2.5 10^3/uL (1.0-4.0); LYMPHOCYTES % (AUTO) 32 % (12-44); MEAN CORPUSCULAR HEMOGLOBIN 28 pg (25-34); MEAN CORPUSCULAR HGB CONC 33 g/dL (32-36); MEAN CORPUSCULAR VOLUME 85 fL (80-99); MEAN PLATELET VOLUME 9.4 fL (9.0-12.2); MONOCYTES # (AUTO) 0.7 10^3/uL (0.0-1.0); MONOCYTES % (AUTO) 9 % (0-12); NEUTROPHILS # (AUTO) 4.6 10^3/uL (1.8-7.8); NEUTROPHILS % (AUTO) 57 % (42-75); PLATELET COUNT 447 10^3/uL (130-400); WHITE BLOOD COUNT 7.9 10^3/uL (4.3-11.0)
[2023-05-11 12:50] LABS: ALBUMIN 4.9 GM/DL (3.2-4.5); CHLORIDE 107 MMOL/L (98-107); POTASSIUM 4.1 MMOL/L (3.6-5.0); SODIUM 139 MMOL/L (135-145)
[2023-05-11 12:52] LABS: CALCIUM 10.2 MG/DL (8.5-10.1)
[2023-05-11 12:53] LABS: GLUCOSE 102 MG/DL (70-105); TOTAL PROTEIN 8.2 GM/DL (6.4-8.2)
[2023-05-11 12:54] LABS: CARBON DIOXIDE 20 MMOL/L (21-32)
[2023-05-11 12:55] LABS: BILIRUBIN,TOTAL 0.2 MG/DL (0.1-1.0)
[2023-05-11 12:56] LABS: ALKALINE PHOSPHATASE 97 U/L (40-136); ERYTHROCYTE SEDIMENTATION RATE 20 MM/HR (0-20)
[2023-05-11 12:57] LABS: GFR ESTIMATED 85
[2023-05-11 12:58] LABS: BUN/CREATININE RATIO 9
[2023-05-11 13:00] LABS: ALANINE AMINOTRANSFERASE 56 U/L (0-55)
== END ==
LOC: LAB 12:08
PROVIDERS: ATTEND Pediatrics
DX: F31.32 Bipolar disorder, current episode depressed, moderate (principal); L60.8 Other nail disorders
CPT/HCPCS: 36415; 80053; 85025; 85652; 86141